=== PATIENT | male | born 1980 | race Caucasian/White ===

== ENCOUNTER 2018-03-10 15:49 | Outpatient (RCR) | payer OTHER, MEDICAID, SELFPAY ==
--- NOTE | 2018-03-10 16:16 | PT.OTN ---
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 All documentation prior to March 08 can be found under [facility] saved data. From March 08 forward all medical record documentation will be in [facility] [facility] 6.1.
--- NOTE | 2018-03-10 18:20 | PT.OTN ---
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) Other abnormalities of gait and mobility (03/10/18) Physical Therapy Treatment Note PT-OP-A Visit Information Start: 03/10/18 17:58 Freq: Status: Active Protocol: Activity Type Activity Date Activity User E-Sign Co-Sign Detail Recorded Client Recorded Date Recorded By Document 03/10/18 16:02 [place] [id number] 03/10/18 18:00 [facility] 03/10/18 16:02 Out-Patient Physical Therapy Visit Information [Visit Information] -Visit Type Treatment Note -Visit Start Time 16:02 -Visit Stop Time 16:50 -Total Visit Minutes 48 -Visit Number 8 -Number of PHOTOGRAPHER STILL Visits 0 [Evaluation Information] -Evaluation Date 12/23/17 PT-OP-C Subjective Start: 03/10/18 17:58 Freq: Status: Active Protocol: Activity Type Activity Date Activity User E-Sign Co-Sign Detail Recorded Client Recorded Date Recorded By Document 03/10/18 18:00 [place] [id number] 03/10/18 18:13 [facility] 03/10/18 18:00 OP-PT Subjective [Patient Comments] -Patient Comments Pt has been able to tolerate 6-7 hrs in his orthotics ( almost his entire work day ). He notes that his L knee pain continues to cause more pain in standing, which leads to more foot pain. PT-OP-J Posture/Palpation/Skin Start: 03/10/18 17:58 Freq: Status: Active Protocol: Activity Type Activity Date Activity User E-Sign Co-Sign Detail Recorded Client Recorded Date Recorded By Document 03/10/18 18:00 [place] [id number] 03/10/18 18:13 [facility] 03/10/18 18:00 Palpation Assessment [Location] One -Palpation Location plantar fascia (bilateral) -Palpation Findings Soft Tissue Tightness PT-OP-Q Treatments Start: 03/10/18 17:58 Freq: Status: Active Protocol: Activity Type Activity Date Activity User E-Sign Co-Sign Detail Recorded Client Recorded Date Recorded By Document 03/10/18 18:00 [facility] [email or web address] 03/10/18 18:13 [facility] 03/10/18 18:00 Gym Equipment [Shuttle Recovery] Bilateral Heel Raises -Resistance 75 -Shuttle Recovery Platform Stable -Reps/Time 1x20 Bilateral Squats -Resistance 125 -Shuttle Recovery Platform Stable -Reps/Time 1x25 Therapeutic Exercises [Standing Exercises] 1 -Standing Exercise Name Stair stretches - HS, gastroc, soleus, plantar fascia -Side bilateral -Reps/Minutes 4 min. Manual Therapy Treatment [Soft Tissue Mobilization] 1 -Body Location plantar fascia (bilateral) -Mobilization Type Rolling -Intensity/Depth Moderate -Body Position Supine -Comments 20 min. [Taping] 1 -Body Location L knee -Treatment Focus decrease swelling/pain L knee to improve foot alignment -Type of Tape Kinesio Tape -Comments 2 Y strips ant. knee, 2 fan strips ant. knee, I strip joint line and medial knee PT-OP-R Modalities Start: 03/10/18 17:58 Freq: Status: Active Protocol: Activity Type Activity Date Activity User E-Sign Co-Sign Detail Recorded Client Recorded Date Recorded By Document 03/10/18 18:13 [facility] [email or web address] 03/10/18 18:14 [facility] 03/10/18 18:13 Hot Pack/Cold Pack [Treatment] Cold Pack -Location L knee -Patient Position Supine -Treatment Duration (minutes) 10 -Patient Tolerance Good -Comments bolster PT-OP-T Assessment and Plan Start: 03/10/18 17:58 Freq: Status: Active Protocol: Activity Type Activity Date Activity User E-Sign Co-Sign Detail Recorded Client Recorded Date Recorded By Document 03/10/18 18:00 [facility] [email or web address] 03/10/18 18:13 [facility] 03/10/18 18:00 Physical Therapy Assessment [Assessment Summary] -Assessment Pt with improved standing posture with kinesiotape to L knee, likely due to pain in the L knee causing increased pronation of the L foot. Pt' s standing tolerance with his feet appear to be improving, slowly however due to multiple co-morbidities . Physical Therapy Plan [Next Visit Focus/Plan] -Next Visit Plan cont. STR to plantar fascia, stretching, lower chain strengthening.
--- NOTE | 2018-06-29 11:20 | PT.OPDS ---
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) Other abnormalities of gait and mobility (03/10/18) Provider Visit Care Team Role Provider Type Viridiana Plasencia DO Primary Care Provider Physician Specialty: Family Practice Address: [address] [place] [address], [id number] Email: [email or web address] Sigala DPM Attending Provider Non-Staff Specialty: Podiatry Address: [address] [place] [address], [phone] Email: Visit Number Visit Number 8 Discharge Summary PT-OP-C Subjective Start: 03/10/18 17:58 Freq: Status: Active Protocol: Document 03/10/18 18:00 [facility] (Rec: 03/10/18 18:13 [facility] [email or web address]) OP-PT Subjective Patient Comments Patient Comments Pt has been able to tolerate 6 -7 hrs in his orthotics ( almost his entire work day). He notes that his L knee pain continues to cause more pain in standing, which leads to more foot pain. PT-OP-J Posture/Palpation/Skin Start: 03/10/18 17:58 Freq: Status: Active Protocol: Document 03/10/18 18:00 [facility] (Rec: 03/10/18 18:13 [facility] [email or web address]) Palpation Assessment Location One Palpation Location plantar fascia (bilateral) Palpation Findings Soft Tissue Tightness PT-OP-T Assessment and Plan Start: 03/10/18 17:58 Freq: Status: Active Protocol: Document 06/29/18 11:16 [facility] (Rec: 06/29/18 11:20 [facility] [email or web address]) Physical Therapy Assessment Assessment Summary Assessment The pt attended 8 total physical therapy sessions, with most recent re-assessment on 02/25/2018. Pt with some improvements with ROM and strength, and has been wearing custom orthotics in his shoes . Pt did not attend further PT sessions beyond his 8th visit , therefore, no objective measures could be taken. Please refer to re-assessment from 02/25/2018 for most recent measurements. Physical Therapy Plan Discharge Physical Therapy Discharge Reasons No Longer Attending PT Discharge Comments pt did not complete his most recent plan of care and does not have any further appointments scheduled.
== END 2018-07-27 13:03 ==
LOC: PHYS 15:49
PROVIDERS: PCP Family Medicine; Visit Provider Podiatrist Foot & Ankle Surgery
DX: M72.2 Plantar fascial fibromatosis (principal); M62.81 Muscle weakness (generalized); M25.672 Stiffness of left ankle, not elsewhere classified; R26.89 Other abnormalities of gait and mobility
CPT/HCPCS: 97110; 97140

== ENCOUNTER → 2018-06-13 14:19 | Outpatient (CLI) | payer OTHER, MEDICAID, SELFPAY ==
[2018-06-13 15:01] LABS: Hemoglobin A1C% w Est Avg Glu 7.1 % (4.0-6.0)
[2018-06-13 15:27] LABS: Alanine Aminotransferase 70 IU/L (21-72); Albumin 4.9 g/dL (3.5-5.0); Albumin Globulin Ratio 1.3 (1.0-2.8); Alkaline Phosphatase 83 U/L (38-126); Aspartate Aminotransferase 57 IU/L (17-59); BUN Creatinine Ratio 13.8 (6-22); Bilirubin Total 0.6 mg/dL (0.2-1.3); Blood Urea Nitrogen 11 mg/dL (9-20); Calcium 10.4 mg/dL (8.4-10.2); Carbon Dioxide 28 mmol/L (22-32); Chloride 99 mmol/L (98-107); Cholesterol 238 mg/dL (140-199); Estimated Glomerular Filt Rate > 60.0 mL/min (>60); Globulin 3.8 g/dL (1.7-4.1); Glucose 113 mg/dL (70-100); HDL Cholesterol 34 mg/dL (40-60); HEMOLYSIS 16 (0-50); LDL Cholesterol Calculated 126 mg/dL (<100); Potassium 3.6 mmol/L (3.4-5.1); Sodium 142 mmol/L (137-145); Total Protein 8.7 g/dL (6.3-8.2); Triglycerides 391 mg/dL (35-150)
[2018-06-13 15:52] LABS: Thyroid Stimulating Hormone 1.99 uIU/mL (0.47-4.68)
== END ==
PROVIDERS: PCP Family Medicine; Visit Provider Family Medicine
DX: E11.9 Type 2 diabetes mellitus without complications (principal); E78.5 Hyperlipidemia, unspecified; I10 Essential (primary) hypertension
CPT/HCPCS: 36415; 80053; 80061; 83036; 84443

== ENCOUNTER → 2018-11-15 12:37 | Outpatient (CLI) | payer OTHER, MEDICAID, SELFPAY | PROVIDERS: PCP Family Medicine; Visit Provider Physician Assistant | DX: J02.9 Acute pharyngitis, unspecified (principal) | CPT/HCPCS: 87070; 87077; 87147 ==

== ENCOUNTER → 2018-12-15 09:23 | Outpatient (CLI) | payer OTHER, MEDICAID, SELFPAY ==
[2018-12-15 09:52] LABS: Add Manual Diff / Slide Review NO; Basophils Absolute Auto 100 /uL (0-100); Basophils Percent Auto 0.9 % (0-2); Eosinophils Absolute Auto 200 /uL (0-450); Eosinophils Percent Auto 2.2 % (2-4); Hematocrit 44.2 % (41-53); Hemoglobin 15.1 g/dL (13.5-17.5); Lymphocytes Absolute Auto 2800 /uL (1100-4500); Lymphocytes Percent Auto 25.5 % (25-40); Mean Corpuscular HGB Conc 34.2 % (30-36); Mean Corpuscular Hemoglobin 28.2 PG (26-34); Mean Corpuscular Volume 82.5 fL (80-100); Monocytes Absolute Auto 600 /uL (0-900); Monocytes Percent Auto 5.6 % (3-14); Neutrophils Absolute Auto 7100 /uL (1500-7000); Neutrophils Percent Auto 65.8 % (50-75); Platelet Count 238 X10^3/uL (150-400); Red Blood Cell Count 5.35 X10^6/uL (4.5-5.9); Red Cell Distribution Width 14.7 % (11.6-14.8); White Blood Cell Count 10.8 X10^3/uL (4.5-11.0)
[2018-12-15 10:05] LABS: Hemoglobin A1C% w Est Avg Glu 10.2 % (4.0-6.0)
[2018-12-15 10:21] LABS: Alanine Aminotransferase 85 IU/L (21-72); Albumin 4.7 g/dL (3.5-5.0); Albumin Globulin Ratio 1.3 (1.0-2.8); Alkaline Phosphatase 134 U/L (38-126); Aspartate Aminotransferase 62 IU/L (17-59); BUN Creatinine Ratio 21.4 (6-22); Bilirubin Total 0.6 mg/dL (0.2-1.3); Blood Urea Nitrogen 15 mg/dL (9-20); Calcium 9.3 mg/dL (8.4-10.2); Carbon Dioxide 25 mmol/L (22-32); Chloride 99 mmol/L (98-107); Cholesterol 196 mg/dL (140-199); Estimated Glomerular Filt Rate > 60.0 mL/min (>60); Globulin 3.6 g/dL (1.7-4.1); Glucose 282 mg/dL (70-100); HDL Cholesterol 34 mg/dL (40-60); HEMOLYSIS 30 (0-50); LDL Cholesterol Calculated 104 mg/dL (<100); Sodium 138 mmol/L (137-145); Total Protein 8.3 g/dL (6.3-8.2); Triglycerides 290 mg/dL (35-150)
[2018-12-15 11:46] LABS: Thyroid Stimulating Hormone 3.91 uIU/mL (0.47-4.68)
== END ==
PROVIDERS: PCP Family Medicine; Visit Provider Family Medicine
DX: E11.9 Type 2 diabetes mellitus without complications (principal); E78.5 Hyperlipidemia, unspecified; I10 Essential (primary) hypertension
CPT/HCPCS: 36415; 80053; 80061; 83036; 84443; 85025

== ENCOUNTER → 2018-12-23 11:27 | Outpatient (CLI) | payer OTHER, MEDICAID, SELFPAY ==
[2018-12-23 11:57] LABS: Influenza A and B by PCR Rapid Negative (Negative)
== END ==
PROVIDERS: PCP Family Medicine; Visit Provider Physician Assistant
DX: R68.89 Other general symptoms and signs (principal)
CPT/HCPCS: 87070; 87400

== ENCOUNTER → 2019-08-10 08:42 | Outpatient (CLI) | payer OTHER, MEDICAID, SELFPAY ==
[2019-08-10 09:32] LABS: Add Manual Diff / Slide Review NO; Basophils Absolute Auto 100 /uL (0-100); Basophils Percent Auto 0.8 % (0-2); Eosinophils Absolute Auto 400 /uL (0-450); Eosinophils Percent Auto 3.5 % (2-4); Hematocrit 47.4 % (41-53); Hemoglobin 16.3 g/dL (13.5-17.5); Lymphocytes Absolute Auto 3700 /uL (1100-4500); Lymphocytes Percent Auto 36.9 % (25-40); Mean Corpuscular HGB Conc 34.5 % (30-36); Mean Corpuscular Hemoglobin 27.7 PG (26-34); Mean Corpuscular Volume 80.3 fL (80-100); Monocytes Absolute Auto 800 /uL (0-900); Neutrophils Absolute Auto 5100 /uL (1500-7000); Neutrophils Percent Auto 50.8 % (50-75); Platelet Count 261 X10^3/uL (150-400); Red Cell Distribution Width 15.8 % (11.6-14.8); White Blood Cell Count 10.1 X10^3/uL (4.5-11.0)
[2019-08-10 09:52] LABS: Alanine Aminotransferase 72 IU/L (21-72); Albumin 4.6 g/dL (3.5-5.0); Albumin Globulin Ratio 1.2 (1.0-2.8); Alkaline Phosphatase 126 U/L (38-126); Aspartate Aminotransferase 65 IU/L (17-59); BUN Creatinine Ratio 26.7 (6-22); Bilirubin Total 0.7 mg/dL (0.2-1.3); Blood Urea Nitrogen 16 mg/dL (9-20); Calcium 9.5 mg/dL (8.4-10.2); Carbon Dioxide 27 mmol/L (22-32); Chloride 97 mmol/L (98-107); Cholesterol 289 mg/dL (140-199); Estimated Glomerular Filt Rate > 60.0 mL/min (>60); Globulin 3.7 g/dL (1.7-4.1); Glucose 297 mg/dL (70-100); HDL Cholesterol 32 mg/dL (40-60); Sodium 135 mmol/L (137-145); Total Protein 8.3 g/dL (6.3-8.2)
[2019-08-10 09:58] LABS: HEMOLYSIS 20 (0-50)
[2019-08-10 10:02] LABS: Triglycerides 605 mg/dL (35-150)
[2019-08-10 10:23] LABS: Thyroid Stimulating Hormone 4.15 uIU/mL (0.47-4.68)
== END ==
PROVIDERS: PCP Family Medicine; Visit Provider Family Medicine
DX: E11.9 Type 2 diabetes mellitus without complications (principal); E78.5 Hyperlipidemia, unspecified; I10 Essential (primary) hypertension
CPT/HCPCS: 36415; 80053; 80061; 83036; 84443; 85025

== ENCOUNTER 2019-10-01 13:22 | Emergency (ER) | payer OTHER, MEDICAID, SELFPAY ==
[2019-10-01 13:35] VITALS: BP 136/74; PULSE 102; RESP 20; TEMP 37; O2SAT 97; BMI 36.1
--- NOTE | 2019-10-01 13:38 | DI.RAD.S_ITS ---
PROCEDURE: XR ELBOW LT MIN 3V INDICATIONS: left elbow pain, unable to move without extreme pain TECHNIQUE: 3 views of the elbow were acquired. COMPARISON: [facility], , ELBOW 3+ VIEWS RIGHT, 03/23/2012, 17:39. FINDINGS: Bones: No fractures or dislocations. No suspicious bony lesions. There is a fragmented posterior olecranon enthesophyte seen. Soft tissues: No significant elbow joint effusion. No suspicious soft tissue calcifications. IMPRESSION: No significant plain film abnormality is seen. If there is strong clinical suspicion for internal derangement of this joint, please consider a dedicated MRI for further evaluation (assuming that there is no contraindication to MRI). Dictated by: Lawrence Nixon M.D. on 10/01/2019 at 13:02 Approved by: Lawrence Nixon M.D. on 10/01/2019 at 13:03
[2019-10-01] MEDS: KETOROLAC 60 MG/2 ML VIAL IM (14:12)
--- NOTE | 2019-10-01 15:43 | ED_ITS ---
HPI - Extremity Problem <Terra Garza, BUSINESS ANALYSIS SPECIALIST-BC - Last Filed: 10/01/19 15:46> General Chief complaint: Extremity Problem,Nontraumatic Stated complaint: left elbow pain Time Seen by Provider: 10/01/19 13:39 Source: patient Mode of arrival: Ambulatory Limitations: no limitations History of Present Illness HPI Narrative: The patient is a 39-year-old male current smoker with history of type 2 diabetes who presents with a chief complaint of left elbow pain. He states has been going on for several months, got worse over the past few days. He states this happened 7 years ago, but resolved. He has taken 400 mg of ibuprofen this morning, has not taken anything else for pain. He has iced it twice a day. 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 Related Data Home Medications Medication Instructions Recorded Confirmed liraglutide 0.6 mg/0.1 mL (18 mg/3 1.8 mg SUBCUT DAILY ml 09/02/18 07/17/19 mL) subcutaneous pen injector dapagliflozin 5 mg tablet 5 mg PO DAILY 06/12/19 07/17/19 insulin glargine 100 unit/mL (3 See Rx Instructions .ROUTE 06/12/19 07/17/19 mL) subcutaneous pen .COMPLEX ml Previous Rx's Medication Instructions Recorded phenylephrine HCl [Hemorrhoidal 1 supp DE QIDP PRN #14 supp 11/11/16 Suppository] Lancets ea BID #100 01/25/17 Glucose: Test Strips str BID #100 08/16/17 ketoconazole [Nizoral] 0 TOPICAL Q7DAYS #120 ml 12/03/17 lidocaine HCl 2 % mucosal jelly 1 applictn TOPICAL Q6HP PRN #30 ml 03/25/18 naratriptan 2.5 mg tablet 2.5 mg PO .COMPLEX #12 tab 04/21/18 zonisamide 100 mg capsule 200 mg PO DAILY #60 cap 04/21/18 glipizide 10 mg tablet, extended 10 mg PO AMCC #30 tab 05/23/18 release 24 hr atorvastatin 80 mg tablet 80 mg PO HS #90 tab 12/02/18 clotrimazole-betamethasone 1 1 applictn TOPICAL BID #15 gram 12/02/18 %-0.05 % topical cream metformin 1,000 mg tablet 1,000 mg PO BIDCC #180 tab 12/02/18 ondansetron 8 mg disintegrating 8 mg PO BID PRN #20 tab 12/23/18 tablet albuterol sulfate 90 mcg/actuation 90 mcg INHALATION QID PRN #1 02/16/19 aerosol inhaler inhalation promethazine 25 mg tablet 25 mg PO Q6HP PRN #30 tab 04/05/19 fluticasone propionate 44 1 inhalation INHALATION BID #10.6 04/18/19 mcg/actuation HFA aerosol inhaler gram lisinopril 20 See Rx Instructions .ROUTE 07/11/19 mg-hydrochlorothiazide 12.5 mg .COMPLEX #30 tablet tablet omeprazole 20 mg tablet,delayed 20 mg PO DAILY #90 tab 07/12/19 release azelastine 137 mcg (0.1 %) nasal 1 spray INTRANASAL BID #1 bot 07/17/19 spray aerosol fluticasone propionate 50 1 spray INTRANASAL BID #1 bot 07/17/19 mcg/actuation nasal spray,suspension pen needle, diabetic 29 gauge x #100 each 07/27/19 1/2 sertraline 100 mg tablet 100 mg PO QDAY #90 tab 08/25/19 oxycodone-acetaminophen 7.5 mg-325 1 tab PO TID #90 tab 09/12/19 mg tablet cyclobenzaprine 10 mg tablet 10 mg PO .once daily PRN #90 tab 09/19/19 ketorolac 10 mg PO TID PRN #14 tab 10/01/19 Allergies Allergy/AdvReac Type Severity Reaction Status Date / Time amoxicillin [AMOXICILLIN] Allergy Unknown HIVES Verified 10/01/19 13:37 Review of Systems <CHAITANYA Parmar- - Last Filed: 10/01/19 15:46> Review of Systems Narrative: GENERAL: Denies chills, fatigue, malaise, fever, sweats. HEENT: Denies sinus pain, ear pain, sore throat, difficulty swallowing, dizziness. RESPIRATORY: Denies dyspnea, cough, wheezing, hemoptysis, sputum. CARDIOVASCULAR: Denies chest pain, palpitations, orthopnea, edema, GASTROINTESTINAL: Denies nausea, vomiting, abdominal pain, diarrhea, constipation, melena. : Denies dysuria, frequency, incontinence, hematuria, urinary retention. MUSCULOSKELETAL: See HPI SKIN: Denies rash, skin lesions, or other NEUROLOGIC: Denies weakness, headache, numbness, change in speech, confusion, seizures, incoordination. PSYCHIATRIC: No concerning psychosocial issues. 12 point review of systems is negative except for those stated above Patient History <ROMANA Parmar - Last Filed: 10/01/19 15:46> Medical History Alopecia (Resolved Unknown) Anxiety (Chronic Unknown) Arthritis (Chronic Unknown) Diabetes (Chronic 2015) Fractures (Resolved 1997) GERD (gastroesophageal reflux disease) (Chronic Unknown) Hemorrhoids (Resolved Unknown) Hyperlipemia (Chronic Unknown) Hypertension (Chronic Unknown) Migraines (Chronic Unknown) Obstructive sleep apnea (Chronic ~03/2015) Surgical History History of fundoplication Hx of arthroscopy of left knee (Resolved 02/2016) Hx of nasal septoplasty (Resolved 10/2015) Hx of nasal sinusotomy (Resolved 10/2015) Family History Brother Age: 43 Kidney transplanted Father Asthma Pleurisy Mother Hypertension GERD (gastroesophageal reflux disease) DJD (degenerative joint disease) Sister Seizure Social History Smoking Status: Current every day smoker Tobacco: How many years used: 24 alcohol intake: current (occasional) Substance Use Type: does not use Exam <ROMANA Parmar - Last Filed: 10/01/19 15:46> Narrative Exam Narrative: GENERAL: Morbidly obese male in no acute distress HEAD: Atraumatic. Normocephalic. No temporal or scalp tenderness. EYES: Pupils equal round and reactive. Extraocular motions intact. No scleral icterus. No injection or drainage. ENT: Nose without bleeding, purulent drainage or septal hematoma. Throat without erythema, tonsillar hypertrophy or exudate. Uvula midline. Airway patent. NECK: Trachea midline. No JVD or lymphadenopathy. Supple, nontender, no meningeal signs. CARDIOVASCULAR: Regular rate and rhythm RESPIRATORY: No cough. No increased respiratory effort. No accessory muscle use. EXTREMITIES: Generalized pain to palpation left elbow. Able to flex and extend left elbow fully. Positive radial pulse left hand. Able to pronate and supinate left hand. Able to make a fist good strength bilaterally upper extremities. BACK: Nontender without deformity or crepitance. No flank tenderness. NEURO: AOx3. SKIN: No rash or erythema on visible skin. No overlying erythema ecchymosis laceration or abrasion noted left elbow. Initial Vital Signs Initial Vital Signs: Vital Signs Temperature 98.6 F 10/01/19 13:35 Pulse Rate 102 H 10/01/19 13:35 Respiratory Rate 20 10/01/19 13:35 Blood Pressure 136/74 10/01/19 13:35 Pulse Oximetry 97 10/01/19 13:35 <Queta Cruz MD - Last Filed: 10/02/19 07:00> Initial Vital Signs Initial Vital Signs: Vital Signs Temperature 98.6 F 10/01/19 13:35 Pulse Rate 102 H 10/01/19 13:35 Respiratory Rate 20 10/01/19 13:35 Blood Pressure 136/74 10/01/19 13:35 Pulse Oximetry 97 10/01/19 13:35 Course <ROMANA Parmar - Last Filed: 10/01/19 15:46> Orders Ordered: Discontinued Medications Ketorolac Tromethamine (Toradol) 60 mg IM NOW ONE Stop: 10/01/19 13:58 Last Admin: 10/01/19 14:12 Dose: 60 mg Documented by: KIEL Vital Signs Vital signs: Vital Signs - 8 hr 10/01/19 13:35 Temperature 98.6 F Pulse Rate 102 H Respiratory Rate 20 Blood Pressure 136/74 Pulse Oximetry 97 <Queta Cruz MD - Last Filed: 10/02/19 07:00> Orders Ordered: Discontinued Medications Ketorolac Tromethamine (Toradol) 60 mg IM NOW ONE Stop: 10/01/19 13:58 Last Admin: 10/01/19 14:12 Dose: 60 mg Documented by: KIEL Vital Signs Vital signs: Vital Signs - 8 hr 10/01/19 13:35 Temperature 98.6 F Pulse Rate 102 H Respiratory Rate 20 Blood Pressure 136/74 Pulse Oximetry 97 MDM - Extremity (Nontraumatic) <ROMANA Parmar - Last Filed: 10/01/19 15:46> Imaging Data Elbow x-ray: Radiologist's impression: [address] [address] XRay Report Signed Patient: Josh Hidalgo TMR#: [id number] : 1980Acct:[id number] Age/Sex: 39 / MDate of Service: 10/01/19 Loc: ED Accession Number: [id number] Procedure: XR elbow LT min 3V Ordering Provider: Queta Cruz MD PROCEDURE: XR ELBOW LT MIN 3V INDICATIONS: left elbow pain, unable to move without extreme pain TECHNIQUE: 3 views of the elbow were acquired. COMPARISON: [facility], , ELBOW 3+ VIEWS RIGHT, 03/23/2012, 17:39. FINDINGS: Bones: No fractures or dislocations. No suspicious bony lesions. There is a fragmented posterior olecranon enthesophyte seen. Soft tissues: No significant elbow joint effusion. No suspicious soft tissue calcifications. IMPRESSION: No significant plain film abnormality is seen. If there is strong clinical suspicion for internal derangement of this joint, please consider a dedicated MRI for further evaluation (assuming that there is no contraindication to MRI). Dictated by: Lawrence Nixon M.D. on 10/01/2019 at 13:02 Approved by: Lawrence Nixon M.D. on 10/01/2019 at 13:03 [facility] Narrative Medical decision making narrative: Patient is a 39-year-old male who presents with a chief complaint of elbow pain. He has a negative x-ray. He denies any history of trauma. He has no signs of infection, no erythema etc. He responded to Toradol in the emergency department, so I gave him prescription and discussed to not take it with any other NSAIDs. Encouraged rest ice compression elevation. Offered work note, patient declined. Encourage PCP follow-up in the next few days and coming back to the emergency department for any acute concerns. Patient has no questions or concerns upon discharge and states understanding of return precautions as well as follow-up care. Discharge Plan Departure Patient Disposition: Home Clinical Impression: Elbow pain, left Discharge Date/Time: 10/01/19 14:57 Instructions: How To Perform RICE (Rest, Ice, Compress, Elevate), DI for Elbow Pain Activity Restrictions/Additional Instructions: I have given you a prescription of Toradol. This is an NSAID. Do not combine it with other NSAIDs such as Aleve or ibuprofen. I suggest taking it with some food, as it can irritate your stomach. As I discussed, your x-ray shows no acute fracture. This does not rule out a soft tissue injury such as a ligament or tendon injury. It is important that you follow up with primary care provider, especially if worsening or no improvement. There can be fractures that did not show up on initial x-ray. Please use rest ice compression elevation Please follow up with primary care provider in the next few days. Please come back to the emergency department for any acute concerns such as chest pain, shortness of breath, concern of heart attack or stroke Prescriptions: New ketorolac 10 mg tablet 10 mg PO TID PRN (Reason: pain) Qty: 14 RF: 0 No Action ondansetron 8 mg tablet,disintegrating 8 mg PO BID PRN (Reason: nausea and vomiting) Qty: 20 RF: 0 liraglutide [Victoza 2-Aniceto] 0.6 mg/0.1 mL (18 mg/3 mL) pen injector 1.8 mg SUBCUT DAILY RF: 0 clotrimazole-betamethasone [Lotrisone] 1-0.05 % cream 1 applictn Topical BID Qty: 15 RF: 1 atorvastatin [Lipitor] 80 mg tablet 80 mg PO HS Qty: 90 RF: 1 metformin 1,000 mg tablet 1,000 mg PO BIDCC Qty: 180 RF: 1 phenylephrine HCl [Hemorrhoidal Suppository] 0.25 % suppository 1 supp DE QIDP PRNQty: 14 RF: 6 Lancets BID Qty: 100 RF: 5 Glucose: Test Strips BID Qty: 100 RF: 6 ketoconazole [Nizoral] 2 % shampoo 0 Topical Q7DAYS Qty: 120 RF: 1 lidocaine HCl 2 % jelly 1 applictn Topical Q6HP PRN (Reason: pain) Qty: 30 RF: 0 glipizide [Glucotrol XL] 10 mg tablet extended release 24hr 10 mg PO AMCC Qty: 30 RF: 3 albuterol sulfate [Ventolin HFA] 90 mcg/actuation HFA aerosol inhaler 90 mcg Inhalation QID PRN (Reason: shortness of breath or wheezing) Qty: 1 RF: 2 promethazine 25 mg tablet 25 mg PO Q6HP PRN (Reason: nausea and vomiting) Qty: 30 RF: 2 Flovent HFA 44 mcg/actuation HFA aerosol inhaler 1 inhalation INHALATION BID Qty: 10.6 RF: 1 lisinopril-hydrochlorothiazide 20-12.5 mg tablet See Rx Instructions .ROUTE .COMPLEX Qty: 30 RF: 0 omeprazole 20 mg tablet,delayed release (DR/EC) 20 mg PO DAILY Qty: 90 RF: 1 (DME) pen needle, diabetic [Ultra-Thin II Ins Pen [place]] 29 gauge x 1/2 needle See Dose Instructions .ROUTE .MEDSUPPLY Qty: 100 RF: 3 sertraline 100 mg tablet 100 mg PO QDAY Qty: 90 RF: 1 oxycodone-acetaminophen [Percocet] 7.5-325 mg tablet 1 tab PO TID Qty: 90 RF: 0 cyclobenzaprine 10 mg tablet 10 mg PO .once daily PRN (Reason: muscle spasm) Qty: 90 RF: 0 Lantus Solostar U-100 Insulin 100 unit/mL (3 mL) insulin pen See Rx Instructions .ROUTE .COMPLEX RF: 0 Farxiga 5 mg tablet 5 mg PO DAILY RF: 0 azelastine 137 mcg (0.1 %) aerosol,spray 1 spray Intranasal BID Qty: 1 RF: 12 fluticasone propionate [Flonase Allergy Relief] 50 mcg/actuation spray,suspen jennifer 1 spray Intranasal BID Qty: 1 RF: 11 zonisamide 100 mg capsule 200 mg PO DAILY Qty: 60 RF: 11 naratriptan 2.5 mg tablet 2.5 mg PO .COMPLEX Qty: 12 RF: 11 Referrals: Viridiana Plasencia DO [Primary Care Provider] -
== END 2019-10-01 14:57 | disposition home or self-care (01) ==
PROVIDERS: Emergency Provider Nurse Practitioner Family; PCP Family Medicine
DX: M25.522 Pain in left elbow (principal)
CPT/HCPCS: 73080; 96372; 99282; 99283; J1885

== ENCOUNTER 2019-12-27 09:00 | Outpatient (RCR) | payer OTHER, MEDICAID, SELFPAY ==
--- NOTE | 2019-12-06 15:04 | PT.OIE ---
Current Diagnoses Stiffness of unspecified joint, not elsewhere classified (12/06/19) Lumbago with sciatica, unspecified side (12/06/19) Muscle weakness (generalized) (12/06/19) Strain of muscle, fascia and tendon of lower back, subsequent encounter (12/06/19) Past Medical History (Last Reviewed 10/16/19 @ 11:47 by Viridiana Plasencia DO) Alopecia (Resolved Unknown) Anxiety (Chronic Unknown) Arthritis (Chronic Unknown) Diabetes (Chronic 2015) Fractures (Resolved 1997) GERD (gastroesophageal reflux disease) (Chronic Unknown) Hemorrhoids (Resolved Unknown) Hyperlipemia (Chronic Unknown) Hypertension (Chronic Unknown) Migraines (Chronic Unknown) Obstructive sleep apnea (Chronic ~03/2015) Past Surgical History (Last Reviewed 10/16/19 @ 11:47 by Viridiana Plasencia DO) History of fundoplication Hx of arthroscopy of left knee (Resolved 02/2016) Hx of nasal septoplasty (Resolved 10/2015) Hx of nasal sinusotomy (Resolved 10/2015) Visit Care Team Role Provider Type Viridiana Plasencia DO Attending Provider Physician Primary Care Provider Specialty: [facility] Address: [address] [place] [address], [address], [facility] Email: [email or web address] Physical Therapy Initial Evaluation PT-OP-A Visit Information Start: 12/06/19 12:30 Freq: Status: Active Protocol: Document 12/06/19 10:30 DCW (Rec: 12/06/19 12:50 DCW [id number]) Out-Patient Physical Therapy Visit Information Visit Information Visit Type Initial Evaluation Visit Start Time 10:30 Visit Stop Time 11:10 Total Visit Minutes 40 Visit Number 1 Number of FORENSICS ANALYST Visits 0 Evaluation Information Evaluation Date 12/06/19 PT-OP-B Current Condition Start: 12/06/19 12:30 Freq: Status: Active Protocol: Document 12/06/19 10:30 DCW (Rec: 12/06/19 12:50 DCW [id number]) Current Condition History of Current Condition Onset Date ~4 years Current Complaints Low back pain, stiffness, decreased functional mobility History of Current Condition Pt is a 39 year old male with an approximately 4 year history of low back pain. Pt has a long standing history of multiple left knee problems, resulting in two surgeries over the last four years. Nearly four years ago, he fell down stairs, which resulted in a meniscus tear and ACL sprain,. Between the fall and change in his gait pattern, pt began to get severe back pain . 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 Pt reports his only relief is pain meds and his TENS unit. Notes his pain averages a 7/10, but is a 5/10 at absolute best, and a 10/10 at worst. Prior Treatments and Tests PCP recommended lumbar x-ray, however has not yet received PT-OP-C Subjective Start: 12/06/19 12:30 Freq: Status: Active Protocol: Document 12/06/19 10:30 DCW (Rec: 12/06/19 12:50 DCW [id number]) OP-PT Subjective Patient Comments Patient Comments I just want to relieve some of this pain. Patient Questionnaires Oswestry Low Back Index Oswestry Score 27/50 = 54% Oswestry Impairment 40 to 59% Impaired (Score 40- 59) OP-PT Pain Assessment Pain Assessment Grid Paper Pain Assessment Grid Completed Yes Location Bilateral Lower Back Intensity 7 Scale Used Numeric (1 - 10) Description Radiating,Shooting,Spasm Frequency Constant Pain Aggravating Factors Standing,Bending,Lifting Home Pain Medication Use Pain Medications Used Yes Pain Behaviors Pain Behaviors Facial Grimacing,Wincing PT-OP-F Manual Assessment Start: 12/06/19 12:30 Freq: Status: Active Protocol: Document 12/06/19 10:30 DCW (Rec: 12/06/19 14:52 DCW [id number]) Manual Assessments Soft Tissue Assessment Soft Tissue Mobility Assessment Moderate tone with tenderness to palpation 3/4: Wincing and withdraw along bilateral piriformis, QL, and thoracic/ lumbar paraspinals Joint Mobility Assessment Joint Mobility Assessment Hypomobility and Tenderness to palpation 3/4: Wincing and withdraw along T-6-L5, as well as tenderness along bilateral SI PT-OP-K Range of Motion Start: 12/06/19 12:30 Freq: Status: Active Protocol: Document 12/06/19 10:30 DCW (Rec: 12/06/19 14:52 DCW [id number]) Lumbar Spine Range of Motion Lumbar Spine Active Degrees Testing Position Sitting Flexion 12 Extension 4 Rotation Left 6 Rotation Right 6 ROM Limitations Pain Comments Very minimal mobility before moderate-severe pain reaction PT-OP-L Special Tests Start: 12/06/19 12:30 Freq: Status: Active Protocol: Document 12/06/19 10:30 DCW (Rec: 12/06/19 14:52 DCW [id number]) Special Tests Lumbar Spine Special Tests Vertical Spine Loading Test Results Positive Standing Flexion Test Results Positive Straight Leg Raise Test Results Positive Bilaterally Slump Test Results Negative Passive Neck Flexion Test Results Positive Manual Traction Test Results Positive for pain Compression Test Results Positive Hip Special Tests Dayan's Test Test Results Positive bilaterally JIGNA Test Results Positive bilaterally PT-OP-M Strength Start: 12/06/19 12:30 Freq: Status: Active Protocol: Document 12/06/19 10:30 DCW (Rec: 12/06/19 14:52 AZW [id number]) Trunk Strength Trunk Manual Muscle Testing Core Stabilization Pt has difficulty nas TrA during pelvic tilt, leading to core and hip instability during movement, TrA MMT 3+/5 Hip Strength Hip Manual Muscle Testing Right Flexion (L2) 4+ Good+ Extension (S1) 4- Good- Abduction 3+ Fair+ Adduction 3 Fair Left Flexion (L2) 4+ Good+ Extension (S1) 4- Good- Abduction 3+ Fair+ Adduction 3 Fair Knee Strength Knee Manual Muscle Testing Right Flexion (S2) 5 Normal Extension (L3) 5 Normal Left Flexion (S2) 3+ Fair+ Extension (L3) 3+ Fair+ Reason Not Measured Pain Ankle/Foot Strength Ankle and Foot Manual Muscle Testing Right Dorsiflexion (L4) 4+ Good+ Plantarflexion (S1) 4+ Good+ Left Dorsiflexion (L4) 4+ Good+ Plantarflexion (S1) 4+ Good+ PT-OP-Q Treatments Start: 12/06/19 12:30 Freq: Status: Active Protocol: Document 12/06/19 10:30 DCW (Rec: 12/06/19 14:52 AZW [id number]) Therapeutic Exercises Sitting Exercises 3 Sitting Exercise Name Seated PPT 2 Sitting Exercise Name Seated lumbar lateral flexion Side bilateral Comments pain-free ROM 1 Sitting Exercise Name Seated lumbar flexion Comments pain-free ROM PT-OP-T Assessment and Plan Start: 12/06/19 12:30 Freq: Status: Active Protocol: Document 12/06/19 10:30 DCW (Rec: 12/06/19 15:02 DCW [id number]) Physical Therapy Assessment Rehab Potential Rehabilitation Potential Fair Evaluation Complexity Number of Personal Factors/Comorbidities 3 or More Number of Body Systems Impaired 4 or More Clinical Presentation at Evaluation Unstable Impairments Impairments Activity Tolerance,Functional Activities,Functional Mobility ,Pain,ROM,Soft Tissue Mobility ,Strength Goals Three Impairment Pt demonstrates significant hip weakness Senior Care Goal (LTG) Pt to improve gross hip MMT to 4/5 to enable him to improve spinal stability, allowing for proper body mechanics while lifting objects at work. 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 Pt is incredibly difficult to diagnoses, or even rule out causes for his pain, because essentially all special testing was positive. All test positions and palpations caused increased pain. Pt does have increased tone throughout his posterior hip, low- and mid back, which if decreased, may allow for more specific testing to determine root cause. Pt does also show billateral hip weakness, core weakness, and vertebral hypomobility. Skilled PT should address these deficiencies. Pt may also benefit from getting in for the lumbar x-ray which his PCP recommended ~2 months ago. PT should focus on STM, flexibility, pain-control modalities, and hip/core strengthening. Physical Therapy Plan Frequency and Duration Frequency of Treatment 2x/Week Duration of Treatment 12 weeks Plan of Care Start Date 12/06/19 Plan of Care End Date 02/28/20 Therapeutic Interventions Therapeutic Interventions Aquatic Therapy,Home Exercise Program,Joint Mobilizations, Manual Therapy,Neuromuscular Re-education,Patient/Caregiver Education,Self-Care/Home Management,Soft Tissue Mobilization,Therapeutic Activities,Therapeutic Exercises Modalities Cold Pack/Ice Massage,Electric Stimulation,Hot Packs, Infrared Therapy,Traction- Mechanical,Ultrasound Next Visit Focus/Plan Next Note Type Treatment Note Next Visit Plan STM, Flexibility, pain-control modalities, hip and core strengthening
--- NOTE | 2019-12-06 15:05 | PT.OPPOC ---
Physical, Occupational & Speech Therapy At [facility] Current Diagnoses Stiffness of unspecified joint, not elsewhere classified (12/06/19) Lumbago with sciatica, unspecified side (12/06/19) Muscle weakness (generalized) (12/06/19) Strain of muscle, fascia and tendon of lower back, subsequent encounter (12/06/19) Visit Care Team Role Provider Type Viridiana Plasencia DO Attending Provider Physician Primary Care Provider Specialty: [facility] Address: [address] [place] [address], [address], [facility] Email: [email or web address] Plan Of Care PT-OP-T Assessment and Plan Start: 12/06/19 12:30 Freq: Status: Active Protocol: Document 12/06/19 10:30 DCW (Rec: 12/06/19 15:02 DCW [id number]) Physical Therapy Assessment Rehab Potential Rehabilitation Potential Fair Evaluation Complexity Number of Personal Factors/Comorbidities 3 or More Number of Body Systems Impaired 4 or More Clinical Presentation at Evaluation Unstable Impairments Impairments Activity Tolerance,Functional Activities,Functional Mobility ,Pain,ROM,Soft Tissue Mobility ,Strength Goals Three Impairment Pt demonstrates significant hip weakness Senior Care Goal (LTG) Pt to improve gross hip MMT to 4/5 to enable him to improve spinal stability, allowing for proper body mechanics while lifting objects at work. 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 Pt is incredibly difficult to diagnoses, or even rule out causes for his pain, because essentially all special testing was positive. All test positions and palpations caused increased pain. Pt does have increased tone throughout his posterior hip, low- and mid back, which if decreased, may allow for more specific testing to determine root cause. Pt does also show billateral hip weakness, core weakness, and vertebral hypomobility. Skilled PT should address these deficiencies. Pt may also benefit from getting in for the lumbar x-ray which his PCP recommended ~2 months ago. PT should focus on STM, flexibility, pain-control modalities, and hip/core strengthening. Physical Therapy Plan Frequency and Duration Frequency of Treatment 2x/Week Duration of Treatment 12 weeks Plan of Care Start Date 12/06/19 Plan of Care End Date 02/28/20 Therapeutic Interventions Therapeutic Interventions Aquatic Therapy,Home Exercise Program,Joint Mobilizations, Manual Therapy,Neuromuscular Re-education,Patient/Caregiver Education,Self-Care/Home Management,Soft Tissue Mobilization,Therapeutic Activities,Therapeutic Exercises Modalities Cold Pack/Ice Massage,Electric Stimulation,Hot Packs, Infrared Therapy,Traction- Mechanical,Ultrasound Next Visit Focus/Plan Next Note Type Treatment Note Next Visit Plan STM, Flexibility, pain-control modalities, hip and core strengthening Plan of Care Dates Plan of Care Start Date 12/06/19 Plan of Care End Date 02/28/20 Electronically Signed by: Paresh Mercado, PT 12/06/19 [id number] Please Sign and Return: I have reviewed this Plan of Care and certify that the skilled therapy services above are required to meet the patient?s needs. Physician Signature Date Printed Name and Credentials Clinical Instructor Signature Printed Name and Credentials
--- NOTE | 2019-12-08 13:50 | PT.OTN ---
Current Diagnoses Stiffness of unspecified joint, not elsewhere classified (12/08/19) Lumbago with sciatica, unspecified side (12/08/19) Muscle weakness (generalized) (12/08/19) Strain of muscle, fascia and tendon of lower back, subsequent encounter (12/08/19) Physical Therapy Treatment Note PT-OP-A Visit Information Start: 12/06/19 12:30 Freq: Status: Active Protocol: Document 12/08/19 12:57 SP (Rec: 12/08/19 13:51 SP [id number]) Out-Patient Physical Therapy Visit Information Visit Information Visit Type Treatment Note Visit Start Time 13:02 Visit Stop Time 13:50 Total Visit Minutes 48 Visit Number 2 Number of BIAS CUTTING MACHINE OPERATOR Visits 1 PT-OP-B Current Condition Start: 12/06/19 12:30 Freq: Status: Active Protocol: Document 12/06/19 10:30 DCW (Rec: 12/06/19 12:50 DCW [id number]) Current Condition History of Current Condition Onset Date ~4 years Current Complaints Low back pain, stiffness, decreased functional mobility History of Current Condition Pt is a 39 year old male with an approximately 4 year history of low back pain. Pt has a long standing history of multiple left knee problems, resulting in two surgeries over the last four years. Nearly four years ago, he fell down stairs, which resulted in a meniscus tear and ACL sprain,. Between the fall and change in his gait pattern, pt began to get severe back pain . 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 Pt reports his only relief is pain meds and his TENS unit. Notes his pain averages a 7/10, but is a 5/10 at absolute best, and a 10/10 at worst. Prior Treatments and Tests PCP recommended lumbar x-ray, however has not yet received PT-OP-C Subjective Start: 12/06/19 12:30 Freq: Status: Active Protocol: Document 12/08/19 12:57 SP (Rec: 12/08/19 13:51 SP [id number]) OP-PT Subjective Patient Comments Patient Comments Pt reported had to use his tens machine after last appt to assist pain control. 7/10 LBP pre PT but the norm, not sure if worse into LLE due to always there. PT-OP-F Manual Assessment Start: 12/06/19 12:30 Freq: Status: Active Protocol: Document 12/06/19 10:30 DCW (Rec: 12/06/19 14:52 DCW [id number]) Manual Assessments Soft Tissue Assessment Soft Tissue Mobility Assessment Moderate tone with tenderness to palpation 3/4: Wincing and withdraw along bilateral piriformis, QL, and thoracic/ lumbar paraspinals Joint Mobility Assessment Joint Mobility Assessment Hypomobility and Tenderness to palpation 3/4: Wincing and withdraw along T-6-L5, as well as tenderness along bilateral SI PT-OP-K Range of Motion Start: 12/06/19 12:30 Freq: Status: Active Protocol: Document 12/06/19 10:30 DCW (Rec: 12/06/19 14:52 DCW [id number]) Lumbar Spine Range of Motion Lumbar Spine Active Degrees Testing Position Sitting Flexion 12 Extension 4 Rotation Left 6 Rotation Right 6 ROM Limitations Pain Comments Very minimal mobility before moderate-severe pain reaction PT-OP-L Special Tests Start: 12/06/19 12:30 Freq: Status: Active Protocol: Document 12/06/19 10:30 DCW (Rec: 12/06/19 14:52 DCW [id number]) Special Tests Lumbar Spine Special Tests Vertical Spine Loading Test Results Positive Standing Flexion Test Results Positive Straight Leg Raise Test Results Positive Bilaterally Slump Test Results Negative Passive Neck Flexion Test Results Positive Manual Traction Test Results Positive for pain Compression Test Results Positive Hip Special Tests Dayan's Test Test Results Positive bilaterally JIGNA Test Results Positive bilaterally PT-OP-M Strength Start: 12/06/19 12:30 Freq: Status: Active Protocol: Document 12/06/19 10:30 DCW (Rec: 12/06/19 14:52 DCW [id number]) Trunk Strength Trunk Manual Muscle Testing Core Stabilization Pt has difficulty nas TrA during pelvic tilt, leading to core and hip instability during movement, TrA MMT 3+/5 Hip Strength Hip Manual Muscle Testing Right Flexion (L2) 4+ Good+ Extension (S1) 4- Good- Abduction 3+ Fair+ Adduction 3 Fair Left Flexion (L2) 4+ Good+ Extension (S1) 4- Good- Abduction 3+ Fair+ Adduction 3 Fair Knee Strength Knee Manual Muscle Testing Right Flexion (S2) 5 Normal Extension (L3) 5 Normal Left Flexion (S2) 3+ Fair+ Extension (L3) 3+ Fair+ Reason Not Measured Pain Ankle/Foot Strength Ankle and Foot Manual Muscle Testing Right Dorsiflexion (L4) 4+ Good+ Plantarflexion (S1) 4+ Good+ Left Dorsiflexion (L4) 4+ Good+ Plantarflexion (S1) 4+ Good+ PT-OP-Q Treatments Start: 12/06/19 12:30 Freq: Status: Active Protocol: Document 12/08/19 12:57 SP (Rec: 12/08/19 13:51 SP [id number]) Therapeutic Exercises Supine Exercises clamshell Supine Exercise Name hooklying Reps/Minutes x10 Comments PPT, tolerant range core march Reps/Minutes 2x5 Comments cued PPT and slow movement pelvic tilt and trans ab Comments performed, cued slow into/ out movement Sitting Exercises Ql stretch Side bilateral Reps/Minutes 10 sec x2 Comments cued tolerant range PF, hip Er stretch Side bilateral Reps/Minutes 30 x2 Comments cued tolerant range 1 Sitting Exercise Name Seated lumbar flexion Comments pain-free ROM PT-OP-R Modalities Start: 12/06/19 12:30 Freq: Status: Active Protocol: Document 12/08/19 12:57 SP (Rec: 12/08/19 13:51 SP [id number]) Electric Stimulation Electric Stimulation IFC Body Location TS, LS Duration (Minutes) 15 Intensity 22 Target/Sweep Target High/Low High Patient Position Prone Combined With Heat/Cold Hot Pack Comments tolerated well PT-OP-T Assessment and Plan Start: 12/06/19 12:30 Freq: Status: Active Protocol: Document 12/08/19 12:57 SP (Rec: 12/08/19 13:51 SP [id number]) Physical Therapy Assessment Goals Three Impairment Pt demonstrates significant hip weakness [facility] Goal (LTG) Pt to improve gross hip MMT to 4/5 to enable him to improve spinal stability, allowing for proper body mechanics while lifting objects at work. 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 Pt reported decrease LBP endof tx 03/17 from 7-8 pre PT. Physical Therapy Plan Frequency and Duration Frequency of Treatment 2x/Week Duration of Treatment 12 weeks Plan of Care Start Date 12/06/19 Plan of Care End Date 02/28/20 Therapeutic Interventions Therapeutic Interventions Aquatic Therapy,Home Exercise Program,Joint Mobilizations, Manual Therapy,Neuromuscular Re-education,Patient/Caregiver Education,Self-Care/Home Management,Soft Tissue Mobilization,Therapeutic Activities,Therapeutic Exercises Modalities Cold Pack/Ice Massage,Electric Stimulation,Hot Packs, Infrared Therapy,Traction- Mechanical,Ultrasound Next Visit Focus/Plan Next Note Type Treatment Note Next Visit Plan Assess added seated and supine HEP last tx tolerance and performance proper form. Continue per PT POC: STM, Flexibility, pain-control modalities, hip and core strengthening
--- NOTE | 2019-12-13 10:48 | PT-OP ANOTE ---
Pt no-showed to his appointment on 12/13/19
--- NOTE | 2019-12-27 09:47 | PT.OTN ---
Current Diagnoses Stiffness of unspecified joint, not elsewhere classified (12/27/19) Lumbago with sciatica, unspecified side (12/27/19) Muscle weakness (generalized) (12/27/19) Strain of muscle, fascia and tendon of lower back, subsequent encounter (12/27/19) Physical Therapy Treatment Note PT-OP-A Visit Information Start: 12/06/19 12:30 Freq: Status: Active Protocol: Document 12/27/19 09:02 SP (Rec: 12/27/19 09:49 SP [id number]) Out-Patient Physical Therapy Visit Information Visit Information Visit Type Treatment Note Visit Start Time 09:04 Visit Stop Time 09:47 Total Visit Minutes 43 Visit Number 3 Number of HUMAN RESOURCES COMMUNICATIONS MANAGER Visits 2 PT-OP-B Current Condition Start: 12/06/19 12:30 Freq: Status: Active Protocol: Document 12/06/19 10:30 DCW (Rec: 12/06/19 12:50 DCW [id number]) Current Condition History of Current Condition Onset Date ~4 years Current Complaints Low back pain, stiffness, decreased functional mobility History of Current Condition Pt is a 39 year old male with an approximately 4 year history of low back pain. Pt has a long standing history of multiple left knee problems, resulting in two surgeries over the last four years. Nearly four years ago, he fell down stairs, which resulted in a meniscus tear and ACL sprain,. Between the fall and change in his gait pattern, pt began to get severe back pain . 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 Pt reports his only relief is pain meds and his TENS unit. Notes his pain averages a 7/10, but is a 5/10 at absolute best, and a 10/10 at worst. Prior Treatments and Tests PCP recommended lumbar x-ray, however has not yet received PT-OP-C Subjective Start: 12/06/19 12:30 Freq: Status: Active Protocol: Document 12/27/19 09:02 SP (Rec: 12/27/19 09:49 SP [id number]) OP-PT Subjective Patient Comments Patient Comments Pt reported same LBP 7/10 pre PT, PT-OP-F Manual Assessment Start: 12/06/19 12:30 Freq: Status: Active Protocol: Document 12/06/19 10:30 DCW (Rec: 12/06/19 14:52 DCW [id number]) Manual Assessments Soft Tissue Assessment Soft Tissue Mobility Assessment Moderate tone with tenderness to palpation 3/4: Wincing and withdraw along bilateral piriformis, QL, and thoracic/ lumbar paraspinals Joint Mobility Assessment Joint Mobility Assessment Hypomobility and Tenderness to palpation 3/4: Wincing and withdraw along T-6-L5, as well as tenderness along bilateral SI PT-OP-K Range of Motion Start: 12/06/19 12:30 Freq: Status: Active Protocol: Document 12/06/19 10:30 DCW (Rec: 12/06/19 14:52 DCW [id number]) Lumbar Spine Range of Motion Lumbar Spine Active Degrees Testing Position Sitting Flexion 12 Extension 4 Rotation Left 6 Rotation Right 6 ROM Limitations Pain Comments Very minimal mobility before moderate-severe pain reaction PT-OP-L Special Tests Start: 12/06/19 12:30 Freq: Status: Active Protocol: Document 12/06/19 10:30 DCW (Rec: 12/06/19 14:52 DCW [id number]) Special Tests Lumbar Spine Special Tests Vertical Spine Loading Test Results Positive Standing Flexion Test Results Positive Straight Leg Raise Test Results Positive Bilaterally Slump Test Results Negative Passive Neck Flexion Test Results Positive Manual Traction Test Results Positive for pain Compression Test Results Positive Hip Special Tests Dayan's Test Test Results Positive bilaterally JIGNA Test Results Positive bilaterally PT-OP-M Strength Start: 12/06/19 12:30 Freq: Status: Active Protocol: Document 12/06/19 10:30 DCW (Rec: 12/06/19 14:52 DCW [id number]) Trunk Strength Trunk Manual Muscle Testing Core Stabilization Pt has difficulty nas TrA during pelvic tilt, leading to core and hip instability during movement, TrA MMT 3+/5 Hip Strength Hip Manual Muscle Testing Right Flexion (L2) 4+ Good+ Extension (S1) 4- Good- Abduction 3+ Fair+ Adduction 3 Fair Left Flexion (L2) 4+ Good+ Extension (S1) 4- Good- Abduction 3+ Fair+ Adduction 3 Fair Knee Strength Knee Manual Muscle Testing Right Flexion (S2) 5 Normal Extension (L3) 5 Normal Left Flexion (S2) 3+ Fair+ Extension (L3) 3+ Fair+ Reason Not Measured Pain Ankle/Foot Strength Ankle and Foot Manual Muscle Testing Right Dorsiflexion (L4) 4+ Good+ Plantarflexion (S1) 4+ Good+ Left Dorsiflexion (L4) 4+ Good+ Plantarflexion (S1) 4+ Good+ PT-OP-Q Treatments Start: 12/06/19 12:30 Freq: Status: Active Protocol: Document 12/27/19 09:02 SP (Rec: 12/27/19 09:49 SP [id number]) Therapeutic Exercises Supine Exercises LTR Side bilateral Reps/Minutes 2 sec hold x10 core bridge Reps/Minutes x10 Comments cued slow pacing with PPT awareness verena range clamshell Supine Exercise Name hooklying, alternate Side bilateral Equipment Used TB #1 Reps/Minutes 2x5 Comments PPT, tolerant range core march Supine Exercise Name alternate Side bilateral Reps/Minutes 2x5 Comments cued PPT and slow movement pelvic tilt and trans ab Supine Exercise Name HEP review Reps/Minutes x5 Comments pre core ex awareness Standing Exercises cat camel Equipment Used table Reps/Minutes x5 pause, x10 Comments cued tolerable range core resisted side step and press out Side bilateral Resistance TB #2 Reps/Minutes side step x3 R and L x3 set R and L, stationary press outs x10 R and L Comments Cued PPT awareness with soft knee bend Manual Therapy Treatment Soft Tissue Mobilization 1 Body Location STMs to BL:ES, paraspinal, QL, glut med Mobilization Type Cross-Friction,Myofascial Release Intensity/Depth Moderate Body Position Prone Comments tolerated well, sensitive to pressure. PT-OP-R Modalities Start: 12/06/19 12:30 Freq: Status: Active Protocol: Document 12/27/19 09:02 SP (Rec: 12/27/19 09:49 SP [id number]) Electric Stimulation Electric Stimulation IFC Body Location TS, LS Duration (Minutes) 10 Intensity 23 Target/Sweep Target High/Low High Patient Position Prone Combined With Heat/Cold Hot Pack Comments tolerated well PT-OP-T Assessment and Plan Start: 12/06/19 12:30 Freq: Status: Active Protocol: Document 12/27/19 09:02 SP (Rec: 12/27/19 09:49 SP [id number]) Physical Therapy Assessment Goals Three Impairment Pt demonstrates significant hip weakness Custodial Goal (LTG) Pt to improve gross hip MMT to 4/5 to enable him to improve spinal stability, allowing for proper body mechanics while lifting objects at work. 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 Pt stated decreased pain from 8/10 pre to 5/10 post tx. Physical Therapy Plan Frequency and Duration Frequency of Treatment 2x/Week Duration of Treatment 12 weeks Plan of Care Start Date 12/06/19 Plan of Care End Date 02/28/20 Therapeutic Interventions Therapeutic Interventions Aquatic Therapy,Home Exercise Program,Joint Mobilizations, Manual Therapy,Neuromuscular Re-education,Patient/Caregiver Education,Self-Care/Home Management,Soft Tissue Mobilization,Therapeutic Activities,Therapeutic Exercises Modalities Cold Pack/Ice Massage,Electric Stimulation,Hot Packs, Infrared Therapy,Traction- Mechanical,Ultrasound Next Visit Focus/Plan Next Note Type Treatment Note Next Visit Plan Assess reponse to last tx: core bridge, resisted side stepping and LTR and stand cat camel for flexibiity added to HEP last tx tolerance and performance proper form. Continue per PT POC: STM, Flexibility, pain-control modalities, hip and core strengthening
--- NOTE | 2020-06-19 17:17 | PT.OPDS ---
Current Diagnoses Stiffness of unspecified joint, not elsewhere classified (12/27/19) Lumbago with sciatica, unspecified side (12/27/19) Muscle weakness (generalized) (12/27/19) Strain of muscle, fascia and tendon of lower back, subsequent encounter (12/27/19) Visit Care Team Role Provider Type Viridiana Plasencia DO Attending Provider Non-Staff Primary Care Provider Specialty: [facility] Address: [address] [place] [address], [address], [facility] Email: [email or web address] Visit Number Visit Number 3 Discharge Summary PT-OP-B Current Condition Start: 12/06/19 12:30 Freq: Status: Active Protocol: Document 12/06/19 10:30 DCW (Rec: 12/06/19 12:50 DCW [id number]) Current Condition History of Current Condition Onset Date ~4 years Current Complaints Low back pain, stiffness, decreased functional mobility History of Current Condition Pt is a 39 year old male with an approximately 4 year history of low back pain. Pt has a long standing history of multiple left knee problems, resulting in two surgeries over the last four years. Nearly four years ago, he fell down stairs, which resulted in a meniscus tear and ACL sprain,. Between the fall and change in his gait pattern, pt began to get severe back pain . 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 Pt reports his only relief is pain meds and his TENS unit. Notes his pain averages a 7/10, but is a 5/10 at absolute best, and a 10/10 at worst. Prior Treatments and Tests PCP recommended lumbar x-ray, however has not yet received PT-OP-C Subjective Start: 12/06/19 12:30 Freq: Status: Active Protocol: Document 12/27/19 09:02 SP (Rec: 12/27/19 09:49 SP [id number]) OP-PT Subjective Patient Comments Patient Comments Pt reported same LBP 7/10 pre PT, PT-OP-F Manual Assessment Start: 12/06/19 12:30 Freq: Status: Active Protocol: Document 12/06/19 10:30 DCW (Rec: 12/06/19 14:52 DCW [id number]) Manual Assessments Soft Tissue Assessment Soft Tissue Mobility Assessment Moderate tone with tenderness to palpation 3/4: Wincing and withdraw along bilateral piriformis, QL, and thoracic/ lumbar paraspinals Joint Mobility Assessment Joint Mobility Assessment Hypomobility and Tenderness to palpation 3/4: Wincing and withdraw along T-6-L5, as well as tenderness along bilateral SI PT-OP-K Range of Motion Start: 12/06/19 12:30 Freq: Status: Active Protocol: Document 12/06/19 10:30 DCW (Rec: 12/06/19 14:52 DCW [id number]) Lumbar Spine Range of Motion Lumbar Spine Active Degrees Testing Position Sitting Flexion 12 Extension 4 Rotation Left 6 Rotation Right 6 ROM Limitations Pain Comments Very minimal mobility before moderate-severe pain reaction PT-OP-L Special Tests Start: 12/06/19 12:30 Freq: Status: Active Protocol: Document 12/06/19 10:30 DCW (Rec: 12/06/19 14:52 DCW [id number]) Special Tests Lumbar Spine Special Tests Vertical Spine Loading Test Results Positive Standing Flexion Test Results Positive Straight Leg Raise Test Results Positive Bilaterally Slump Test Results Negative Passive Neck Flexion Test Results Positive Manual Traction Test Results Positive for pain Compression Test Results Positive Hip Special Tests Dayan's Test Test Results Positive bilaterally JIGNA Test Results Positive bilaterally PT-OP-M Strength Start: 12/06/19 12:30 Freq: Status: Active Protocol: Document 12/06/19 10:30 DCW (Rec: 12/06/19 14:52 DCW [id number]) Trunk Strength Trunk Manual Muscle Testing Core Stabilization Pt has difficulty nas TrA during pelvic tilt, leading to core and hip instability during movement, TrA MMT 3+/5 Hip Strength Hip Manual Muscle Testing Right Flexion (L2) 4+ Good+ Extension (S1) 4- Good- Abduction 3+ Fair+ Adduction 3 Fair Left Flexion (L2) 4+ Good+ Extension (S1) 4- Good- Abduction 3+ Fair+ Adduction 3 Fair Knee Strength Knee Manual Muscle Testing Right Flexion (S2) 5 Normal Extension (L3) 5 Normal Left Flexion (S2) 3+ Fair+ Extension (L3) 3+ Fair+ Reason Not Measured Pain Ankle/Foot Strength Ankle and Foot Manual Muscle Testing Right Dorsiflexion (L4) 4+ Good+ Plantarflexion (S1) 4+ Good+ Left Dorsiflexion (L4) 4+ Good+ Plantarflexion (S1) 4+ Good+ PT-OP-T Assessment and Plan Start: 12/06/19 12:30 Freq: Status: Active Protocol: Document 06/19/20 17:17 DCW (Rec: 06/19/20 17:17 DCW [id number]) Physical Therapy Assessment Assessment Summary Assessment Pt did not return phone calls from scheduling department following reopening of clinic after Covid-19 closure. Pt will be discharged from skilled therapy at this time.
== END 2020-06-20 08:31 ==
LOC: PHYS 09:00
PROVIDERS: PCP Family Medicine; Visit Provider Family Medicine
DX: S39.012D Strain of muscle, fascia and tendon of lower back, subsequent encounter (principal); M25.60 Stiffness of unspecified joint, not elsewhere classified; M62.81 Muscle weakness (generalized); M54.40 Lumbago with sciatica, unspecified side
CPT/HCPCS: 97014; 97110; 97140; 97162; G0283

== ENCOUNTER → 2020-06-14 12:10 | Outpatient (CLI) | payer OTHER, MEDICAID, SELFPAY ==
[2020-06-14 13:14] LABS: Creatinine Urine Random 25.4 mg/dL
[2020-06-14 13:19] LABS: Microalbumi Creatinin Ratio Ur 200.7 ug/mg CR (<30); Microalbumin Urine Random 5.1 mg/dL (0-1.6)
[2020-06-14 13:20] LABS: Alanine Aminotransferase 57 IU/L (<50); Albumin 4.4 g/dL (3.5-5.0); Albumin Globulin Ratio 1.4 (1.0-2.8); Alkaline Phosphatase 152 U/L (38-126); Aspartate Aminotransferase 44 IU/L (17-59); BUN Creatinine Ratio 21.9 (6-22); Bilirubin Total 0.6 mg/dL (0.2-1.3); Blood Urea Nitrogen 14 mg/dL (9-20); Calcium 10.7 mg/dL (8.4-10.2); Carbon Dioxide 18 mmol/L (22-32); Chloride 101 mmol/L (98-107); Cholesterol 256 mg/dL (140-199); Estimated Glomerular Filt Rate > 60.0 mL/min (>60); Globulin 3.2 g/dL (1.7-4.1); Glucose 373 mg/dL (70-100); HDL Cholesterol 36 mg/dL (40-60); HEMOLYSIS < 15 (0-50); Potassium 4.5 mmol/L (3.4-5.1); Sodium 134 mmol/L (137-145); Total Protein 7.6 g/dL (6.3-8.2)
[2020-06-14 13:21] LABS: Hemoglobin A1C% w Est Avg Glu 11.2 % (4.0-6.0)
[2020-06-14 13:31] LABS: Triglycerides 816 mg/dL (35-150)
== END ==
PROVIDERS: PCP Family Medicine; Referring Provider Family Medicine; Visit Provider Family Medicine
DX: E11.9 Type 2 diabetes mellitus without complications (principal); E78.5 Hyperlipidemia, unspecified; I10 Essential (primary) hypertension
CPT/HCPCS: 36415; 80053; 80061; 82043; 82570; 83036

== ENCOUNTER → 2020-10-08 08:54 | Outpatient (CLI) | payer OTHER, MEDICAID, SELFPAY ==
[2020-10-08 10:46] LABS: Alanine Aminotransferase 84 IU/L (<50); Albumin 4.3 g/dL (3.5-5.0); Albumin Globulin Ratio 1.2 (1.0-2.8); Alkaline Phosphatase 151 U/L (38-126); Aspartate Aminotransferase 64 IU/L (17-59); BUN Creatinine Ratio 24.5 (6-22); Bilirubin Total 0.8 mg/dL (0.2-1.3); Blood Urea Nitrogen 12 mg/dL (9-20); Calcium 9.4 mg/dL (8.4-10.2); Carbon Dioxide 22 mmol/L (22-32); Chloride 100 mmol/L (98-107); Estimated Glomerular Filt Rate > 60.0 mL/min (>60); Globulin 3.5 g/dL (1.7-4.1); Glucose 375 mg/dL (70-100); HEMOLYSIS < 15 (0-50); Potassium 4.4 mmol/L (3.4-5.1); Sodium 132 mmol/L (137-145); Total Protein 7.8 g/dL (6.3-8.2)
[2020-10-08 12:32] LABS: Hemoglobin A1C% w Est Avg Glu > 14.0 % (4.0-6.0)
== END ==
PROVIDERS: PCP Family Medicine; Referring Provider Family Medicine; Visit Provider Family Medicine
DX: E11.9 Type 2 diabetes mellitus without complications (principal)
CPT/HCPCS: 36415; 80053; 83036

== ENCOUNTER 2021-02-01 19:18 | Emergency (ER) | payer OTHER, MEDICAID, SELFPAY ==
[2021-02-01 19:32] VITALS: BP 161/92; PULSE 117; RESP 16; TEMP 36.4; O2SAT 97; BMI 35.9
[2021-02-01] MEDS: cephALEXin 250 MG CAPSULE 500 MG PO (21:29)
[2021-02-01] MEDS: cephALEXin 250 MG PREPACK 1 BOTTLE MISC (21:29)
[2021-02-01 21:33] VITALS: BP 148/88; PULSE 80; RESP 18; O2SAT 97
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
== END 2021-02-01 21:35 | disposition home or self-care (01) ==
PROVIDERS: Emergency Provider Emergency Medicine; PCP Family Medicine
DX: T23.272A Burn of second degree of left wrist, initial encounter (principal); T31.0 Burns involving less than 10% of body surface; X08.8XXA Exposure to other specified smoke, fire and flames, initial encounter; L03.114 Cellulitis of left upper limb
CPT/HCPCS: 99282; 99283

== ENCOUNTER → 2021-06-18 09:06 | Outpatient (CLI) | payer OTHER, MEDICAID, SELFPAY ==
[2021-06-18 09:34] LABS: Add Manual Diff / Slide Review NO; Basophils Absolute Auto 100 /uL (0-100); Basophils Percent Auto 1.2 % (0-2); Eosinophils Absolute Auto 200 /uL (0-450); Eosinophils Percent Auto 2.7 % (2-4); Hematocrit 46.8 % (41-53); Hemoglobin 15.7 g/dL (13.5-17.5); Lymphocytes Absolute Auto 3000 /uL (1100-4500); Lymphocytes Percent Auto 34.8 % (25-40); Mean Corpuscular HGB Conc 33.5 % (30-36); Mean Corpuscular Hemoglobin 28.4 PG (26-34); Mean Corpuscular Volume 84.7 fL (80-100); Monocytes Absolute Auto 600 /uL (0-900); Monocytes Percent Auto 7.4 % (3-14); Neutrophils Absolute Auto 4600 /uL (1500-7000); Neutrophils Percent Auto 53.9 % (50-75); Platelet Count 239 X10^3/uL (150-400); Red Blood Cell Count 5.53 X10^6/uL (4.5-5.9); Red Cell Distribution Width 13.7 % (11.6-14.8); White Blood Cell Count 8.5 X10^3/uL (4.5-11.0)
[2021-06-18 09:59] LABS: Alanine Aminotransferase 50 IU/L (<50); Albumin 3.9 g/dL (3.5-5.0); Albumin Globulin Ratio 1.1 (1.0-2.8); Alkaline Phosphatase 203 U/L (38-126); Aspartate Aminotransferase 38 IU/L (17-59); BUN Creatinine Ratio 14.5 (6-22); Bilirubin Total 0.7 mg/dL (0.2-1.3); Blood Urea Nitrogen 11 mg/dL (9-20); Calcium 9.8 mg/dL (8.4-10.2); Carbon Dioxide 28 mmol/L (22-32); Chloride 89 mmol/L (98-107); Cholesterol 309 mg/dL (140-199); Estimated Glomerular Filt Rate > 60.0 mL/min (>60); Globulin 3.5 g/dL (1.7-4.1); HDL Cholesterol 32 mg/dL (40-60); HEMOLYSIS < 15 (0-50); Potassium 3.7 mmol/L (3.4-5.1); Sodium 128 mmol/L (137-145); Total Protein 7.4 g/dL (6.3-8.2)
[2021-06-18 10:13] LABS: Triglycerides 691 mg/dL (35-150)
[2021-06-18 10:29] LABS: Creatinine Urine Random 18.9 mg/dL
[2021-06-18 10:35] LABS: Microalbumi Creatinin Ratio Ur 513.2 ug/mg CR (<30); Microalbumin Urine Random 9.7 mg/dL (0-1.6)
[2021-06-18 10:36] LABS: Glucose 604 mg/dL (70-100)
[2021-06-18 11:00] LABS: Hemoglobin A1C% w Est Avg Glu > 14.0 % (4.0-6.0)
== END ==
PROVIDERS: PCP Family Medicine; Referring Provider Family Medicine; Visit Provider Family Medicine
DX: E11.9 Type 2 diabetes mellitus without complications (principal); E78.2 Mixed hyperlipidemia; I10 Essential (primary) hypertension; Z79.4 Long term (current) use of insulin
CPT/HCPCS: 36415; 80053; 80061; 82043; 82570; 82948; 83036; 85025

== ENCOUNTER 2021-07-20 14:10 | Emergency (ER) | payer OTHER, MEDICAID, SELFPAY ==
[2021-07-20 14:36] VITALS: BP 152/92; PULSE 92; RESP 20; TEMP 36.7; O2SAT 95; BMI 33.5
--- NOTE | 2021-07-20 14:44 | DI.RAD.S_ITS ---
PROCEDURE: XR CHEST 1V INDICATIONS: chest pain TECHNIQUE: One view of the chest was acquired. COMPARISON: [facility], CHEST 2 VIEW, 02/12/2017, 10:02. [facility], , CHEST 2 VIEW, 08/17/2016, 18:58. FINDINGS: Surgical changes and devices: None. Lungs and pleura: Lungs are clear. No pleural effusions or pneumothorax. Mediastinum: Mediastinal contours appear normal. Heart size is normal. Bones and chest wall: No suspicious bony lesions. Overlying soft tissues appear unremarkable. IMPRESSION: No acute cardiopulmonary abnormality. Dictated by: Sigifredo Chew M.D. on 07/20/2021 at 14:59 Approved by: Sigifredo Chew M.D. on 07/20/2021 at 14:59
[2021-07-20 14:51] VITALS: BP 146/95; PULSE 89; RESP 21; O2SAT 94
[2021-07-20 15:00] VITALS: PULSE 87; RESP 30; O2SAT 95
--- NOTE | 2021-07-20 15:17 | ED.EXTPRO ---
HPI - Extremity Problem General Chief complaint: Extremity Problem,Nontraumatic Stated complaint: Swollen ankles/feet Time Seen by Provider: 07/20/21 15:04 Source: patient Mode of arrival: Family Vehicle Limitations: no limitations History of Present Illness HPI Narrative: 41-year-old insulin-dependent diabetic male who is here for evaluation of bilateral swollen ankles and feet. He states that the symptoms started a couple days ago. 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 He does think that the right side is worse than the left but he does have swelling both sides. No chest pain. No shortness of breath. No redness over the area. Went to work today and had a difficult time standing secondary to the discomfort. Has never had anything like this in past. Related Data Previous Rx's Medication Instructions Recorded phenylephrine HCl 0.25 % rectal 1 supp DC QIDP PRN #14 supp 11/11/16 suppository (Hemorrhoidal Suppository) fluticasone propionate 50 1 spray INTRANASAL BID #1 bot 07/17/19 mcg/actuation nasal spray,suspension (Flonase Allergy Relief) miscellaneous medical supply 1 each [facility] [place] #1 each 10/12/19 naratriptan 2.5 mg tablet 2.5 mg PO .COMPLEX #12 tab 04/16/20 Glucose: Test Strips #1 ea 07/23/20 Lancets #1 ea 07/23/20 azelastine 137 mcg (0.1 %) nasal 1 spray INTRANASAL BID #1 bot 07/23/20 spray aerosol metformin 1,000 mg tablet See Rx Instructions .ROUTE 10/29/20 .COMPLEX #180 tablet albuterol sulfate 90 mcg/actuation 90 mcg INHALATION QID PRN #1 04/14/21 aerosol inhaler (Ventolin HFA) inhalation fluticasone propionate 44 1 inh INHALATION BID #10.6 gram 04/14/21 mcg/actuation HFA aerosol inhaler (Flovent HFA) aluminum chloride 20 % topical 1 applic TOP QWEEK PRN #60 ml 06/18/21 solution (Drysol) atorvastatin 80 mg tablet See Rx Instructions .ROUTE 06/18/21 .COMPLEX #90 tab blood-glucose meter #1 ea 06/18/21 clotrimazole-betamethasone 1 1 applic TOPICAL BID #15 gram 06/18/21 %-0.05 % topical cream cyclobenzaprine 10 mg tablet See Rx Instructions .ROUTE 06/18/21 .COMPLEX #90 tab dapagliflozin 5 mg tablet (Farxiga) 10 mg PO DAILY #180 tab 06/18/21 insulin glargine U-300 conc 300 110 unit SUBCUT BID #6 ml 06/18/21 unit/mL (3 mL) subcutaneous pen insulin lispro 100 unit/mL 10 unit SUBCUT QAC #15 ml 06/18/21 subcutaneous pen (Humalog KwikPen (U-100) Insulin) ketoconazole 2 % shampoo 1 applic TOPICAL Q7DAYS #120 ml 06/18/21 lidocaine HCl 2 % mucosal jelly 1 applic TOPICAL Q6HP PRN #30 ml 06/18/21 lisinopril 20 See Rx Instructions .ROUTE 06/18/21 mg-hydrochlorothiazide 12.5 mg .COMPLEX #90 tablet tablet omeprazole 20 mg tablet,delayed 20 mg PO DAILY #90 tab 06/18/21 release ondansetron 8 mg disintegrating See Rx Instructions .ROUTE 06/18/21 tablet .COMPLEX #20 tab pen needle, diabetic 32 gauge x See Rx Instructions .ROUTE 06/18/21 5/32 (TRUEplus Pen Needle) .COMPLEX #100 ea sertraline 100 mg tablet 100 mg PO QDAY #90 tab 06/18/21 zonisamide 100 mg capsule 200 mg PO DAILY #180 cap 06/18/21 exenatide microspheres 2 mg/0.85 2 mg SUBCUT Q7D #3.4 ml 07/10/21 mL subcutaneous auto-injector ([employer] BCise) oxycodone-acetaminophen 7.5 mg-325 1 tab PO QID #120 tab 07/12/21 mg tablet (Percocet) furosemide 20 mg tablet (Lasix) 20 mg PO DAILY 4 Days #4 tab 07/20/21 Allergies Allergy/AdvReac Type Severity Reaction Status Date / Time amoxicillin [AMOXICILLIN] Allergy Unknown HIVES Verified 07/20/21 14:40 Review of Systems Eyes Eyes: Reports system reviewed and no additional complaints, except as documented Cardiovascular Cardiovascular: Reports system reviewed and no additional complaints, except as documented Respiratory Respiratory: Reports system reviewed and no additional complaints, except as documented Gastrointestinal Gastrointestinal: Reports system reviewed and no additional complaints, except as documented Musculoskeletal Musculoskeletal: Reports system reviewed and no additional complaints, except as documented and Reports as per HPI Integumentary/Breasts Skin/Breast: Reports system reviewed and no additional complaints, except as documented and Reports as per HPI Neurologic Neurologic: Reports system reviewed and no additional complaints, except as documented Hematologic/Lymphatic On Anticoagulants: No Patient History Medical History (Updated 07/20/21 @ 16:06 by Alfredo Law DO) Acquired spondylolysis of lumbar spine Alopecia (Unknown) Anxiety (Unknown) Arthritis (Unknown) Dental infection Diabetes (2016) Fractures (1998) GERD (gastroesophageal reflux disease) (Unknown) Hemorrhoids (Unknown) Hyperlipemia (Unknown) Hypertension (Unknown) Migraines (Unknown) Obstructive sleep apnea (~03/2015) Surgical History History of fundoplication Hx of arthroscopy of left knee (02/2016) Hx of nasal septoplasty (10/2015) Hx of nasal sinusotomy (10/2015) Family History Brother Age: 45 Kidney transplanted Father Asthma Pleurisy Mother Hypertension GERD (gastroesophageal reflux disease) DJD (degenerative joint disease) Sister Seizure Social History Smoking Status: Current every day smoker Tobacco: How many years used: 24 quit status: considering quitting alcohol intake: current (1 drink per month ) substance use type: does not use Smoking Status: Current every day smoker tobacco type: cigarettes alcohol intake frequency: 0-2 drinks per day Substance Use Type: marijuana Exam Initial Vital Signs Initial Vital Signs: Vital Signs Temperature 98.1 F 07/20/21 14:36 Pulse Rate 92 H 07/20/21 14:36 Respiratory Rate 20 07/20/21 14:36 Blood Pressure 152/92 H 07/20/21 14:36 Pulse Oximetry 95 07/20/21 14:36 Const General: cooperative and comfortable HENMT Head: normal to inspection and normocephalic Eyes General: appearance normal, both eyes and all related structures Resp Effort & Inspection: normal respiratory effort Auscultation: clear to auscultation bilaterally Cardio Rate: regular rate Rhythm: regular rhythm Pulses: dorsalis pedis present bilaterally Skin General: no rashes or lesions noted Neuro General: patient alert, patient awake and moves all extremities Other: Patient does have lower extremity swelling. Starts distal to the knees. Right leg swelling worse than right Extrem General: capillary refill normal Psych Appearance: grossly normal and well kempt Course Orders Ordered: ED Orders 07/20/21 14:44 XR chest 1V Stat EKG-12 Lead Stat 07/20/21 15:05 BNP [NT-proBNP (BNP-Adult 18+)] Stat Complete Blood Count AUTO DIFF Stat Comprehensive Metabolic Panel Stat Lipase Stat Troponin & CK Cardiac Panel Stat Vital Signs Vital signs: Vital Signs - 8 hr 07/20/21 14:36 07/20/21 14:51 07/20/21 15:00 Temperature 98.1 F Pulse Rate 92 H 89 87 Respiratory Rate 20 21 30 H Blood Pressure 152/92 H 146/95 H Pulse Oximetry 95 94 95 MDM - Extremity (Nontraumatic) Lab Data Result diagrams: 07/20/21 15:05 07/20/21 15:05 Labs: Lab Results 07/20/21 07/20/21 07/20/21 Range/Units 15:05 15:05 15:05 WBC 8.7 (4.5-11.0) X10^3/uL RBC 5.23 (4.5-5.9) X10^6/uL Hgb 15.0 (13.5-17.5) g/dL Hct 43.8 (41-53) % MCV 83.8 (80-100) fL MCH 28.6 (26-34) PG MCHC 34.2 (30-36) % RDW 13.8 (11.6-14.8) % Plt Count 247 (150-400) X10^3/uL Neut % (Auto) 53.0 (50-75) % Lymph % (Auto) 35.6 (25-40) % [place] % (Auto) 6.1 (3-14) % Eos % (Auto) 4.2 H (2-4) % Baso % (Auto) 1.1 (0-2) % Neut # (Auto) 4600 (7021-7837) /uL Lymph # (Auto) 3100 (3783-3627) /uL [place] # (Auto) 500 (0-900) /uL Eos # (Auto) 400 (0-450) /uL Baso # (Auto) 100 (0-100) /uL Sodium 138 (137-145) mmol/L Potassium 3.0 L (3.4-5.1) mmol/L Chloride 101 (98-107) mmol/L Carbon Dioxide 30 (22-32) mmol/L BUN 9 (9-20) mg/dL Creatinine 0.60 L (0.66-1.25) mg/dL Estimated GFR > 60.0 (>60) mL/min BUN/Creatinine Ratio 15.0 (6-22) Glucose 212 H (70-100) mg/dL Calcium 9.2 (8.4-10.2) mg/dL Total Bilirubin 0.5 (0.2-1.3) mg/dL AST 28 (17-59) IU/L ALT 42 (<50) IU/L Alkaline Phosphatase 106 (38-126) U/L Total Creatine Kinase 86 (55-170) U/L CK-MB (CK-2) TNP CK-MB (CK-2) Rel Index TNP Troponin I < 0.012 (0.01-0.034) ng/mL NT-Pro-B Natriuret Pep 71 (<125) pg/mL Total Protein 7.2 (6.3-8.2) g/dL Albumin 4.0 (3.5-5.0) g/dL Globulin 3.2 (1.7-4.1) g/dL Albumin/Globulin Ratio 1.3 (1.0-2.8) Lipase 85 (23-300) U/L Point of Care Testing Glucose POC 206 Imaging Data Chest x-ray: Radiologist's Impression: [address] [address] XRay Report Signed Patient: Josh Hidalgo MR#: [id number] : 1980 Acct:[id number] Age/Sex: 41 / M Date of Service: 07/20/21 Loc: ED Accession Number: [id number] ?? Procedure: XR chest 1V Ordering Provider: Alfredo Law D.O. PROCEDURE:? XR CHEST 1V ? INDICATIONS:? chest pain ? TECHNIQUE:? One view of the chest was acquired.? ? COMPARISON:? [facility], CHEST 2 VIEW, 02/12/2017, 10:02.? [facility], CR, CHEST 2 VIEW, 08/17/2016, 18:58. ? FINDINGS:? ? Surgical changes and devices:? None.? ? Lungs and pleura:? Lungs are clear.? No pleural effusions or pneumothorax.? ? Mediastinum:? Mediastinal contours appear normal.? Heart size is normal.? ? Bones and chest wall:? No suspicious bony lesions.? Overlying soft tissues appear unremarkable.? ? IMPRESSION:? No acute cardiopulmonary abnormality. ? ? ? Dictated by: Sigifredo Chew M.D. on 07/20/2021 at 14:59 ? ? Approved by: Sigifredo Chew M.D. on 07/20/2021 at 14:59 ECG Data Attestation EKG: I personally reviewed and interpreted this ECG as follows: Interpretation: Sinus rhythm Ventricular rate 80 Normal axis Normal QRS Normal QTC No ST T wave changes MDM Narrative Medical decision making narrative: Patient does have bilateral lower extremity swelling. Low suspicion for cellulitis. Low suspicion for DVT. I suspect this is related to his standing/diabetes. We will start him on a water pill for the next couple days. He was given return precautions and follow-up instructions. He expressed understanding and agreement. Discharge Plan Departure Patient Disposition: Home Clinical Impression: Bilateral lower extremity edema Instructions: Edema (Alternative Therapy), Edema Activity Restrictions/Additional Instructions: You were given a 1st dose of a water pill today called Lasix. A prescription was sent to the pharmacy of your choice. Please start taking tomorrow. Will cause you to urinate. Contact your primary doctor for follow-up. Continue take all of your medications as directed. Return to the emergency department for any new or worsening symptoms Prescriptions: New furosemide [Lasix] 20 mg tablet 20 mg PO DAILY 4 Days Qty: 4 RF: 0 No Action phenylephrine HCl [Hemorrhoidal Suppository] 0.25 % suppository 1 supp DC QIDP PRNQty: 14 RF: 6 azelastine 137 mcg (0.1 %) aerosol,spray 1 spray Intranasal BID Qty: 1 RF: 12 (DME) Glucose: Test Strips 100 Strips See Rx Instructions .Route .MEDSUPPLY Qty: 1 RF: 6 (DME) Lancets 100 LANCETS See Rx Instructions .Route .MEDSUPPLY Qty: 1 RF: 5 albuterol sulfate [Ventolin HFA] 90 mcg/actuation HFA aerosol inhaler 90 mcg Inhalation QID PRN (Reason: shortness of breath or wheezing) Qty: 1 RF: 2 Flovent HFA 44 mcg/actuation HFA aerosol inhaler 1 inh INHALATION BID Qty: 10.6 RF: 1 Bydureon BCise 2 mg/0.85 mL auto-injector 2 mg SUBCUT Q7D Qty: 3.4 RF: 6 oxycodone-acetaminophen [Percocet] 7.5-325 mg tablet 1 tab PO QID Qty: 120 RF: 0 fluticasone propionate [Flonase Allergy Relief] 50 mcg/actuation spray,suspension 1 spray Intranasal BID Qty: 1 RF: 11 miscellaneous medical supply Misc 1 each MISC DAILY Qty: 1 RF: 0 naratriptan 2.5 mg tablet 2.5 mg PO .COMPLEX Qty: 12 RF: 11 metformin 1,000 mg tablet See Rx Instructions .ROUTE .COMPLEX Qty: 180 RF: 3 (DME) blood-glucose meter Kit See Rx Instructions .ROUTE .MEDSUPPLY Qty: 1 RF: 0 Farxiga 5 mg tablet 10 mg PO DAILY Qty: 180 RF: 1 ketoconazole 2 % shampoo 1 applic Topical Q7DAYS Qty: 120 RF: 1 aluminum chloride [Drysol] 20 % solution 1 applic TOP QWEEK PRN (Reason: hyperhidrosis) Qty: 60 RF: 1 atorvastatin 80 mg tablet See Rx Instructions .ROUTE .COMPLEX Qty: 90 RF: 3 clotrimazole-betamethasone 1-0.05 % cream 1 applic Topical BID Qty: 15 RF: 1 cyclobenzaprine 10 mg tablet See Rx Instructions .ROUTE .COMPLEX Qty: 90 RF: 1 lidocaine HCl 2 % jelly 1 applic Topical Q6HP PRN (Reason: pain) Qty: 30 RF: 1 lisinopril-hydrochlorothiazide 20-12.5 mg tablet See Rx Instructions .ROUTE .COMPLEX Qty: 90 RF: 2 omeprazole 20 mg tablet,delayed release (DR/EC) 20 mg PO DAILY Qty: 90 RF: 1 ondansetron 8 mg tablet,disintegrating See Rx Instructions .ROUTE .COMPLEX Qty: 20 RF: 1 pen needle, diabetic [TRUEplus Pen Needle] 32 gauge x 5/32 needle See Rx Instructions .ROUTE .COMPLEX Qty: 100 RF: 0 sertraline 100 mg tablet 100 mg PO QDAY Qty: 90 RF: 3 zonisamide 100 mg capsule 200 mg PO DAILY Qty: 180 RF: 3 insulin glargine U-300 conc 300 unit/mL (3 mL) insulin pen 110 unit SUBCUT BID Qty: 6 RF: 10 insulin lispro [Humalog KwikPen Insulin] 100 unit/mL insulin pen 10 unit SUBCUT QAC Qty: 15 RF: 10 Referrals: Ernie Tamayo, [Primary Care Provider] -
[2021-07-20 15:21] LABS: Add Manual Diff / Slide Review NO; Basophils Absolute Auto 100 /uL (0-100); Basophils Percent Auto 1.1 % (0-2); Eosinophils Absolute Auto 400 /uL (0-450); Eosinophils Percent Auto 4.2 % (2-4); Hematocrit 43.8 % (41-53); Lymphocytes Absolute Auto 3100 /uL (1100-4500); Lymphocytes Percent Auto 35.6 % (25-40); Mean Corpuscular HGB Conc 34.2 % (30-36); Mean Corpuscular Hemoglobin 28.6 PG (26-34); Mean Corpuscular Volume 83.8 fL (80-100); Monocytes Absolute Auto 500 /uL (0-900); Monocytes Percent Auto 6.1 % (3-14); Neutrophils Absolute Auto 4600 /uL (1500-7000); Platelet Count 247 X10^3/uL (150-400); Red Blood Cell Count 5.23 X10^6/uL (4.5-5.9); Red Cell Distribution Width 13.8 % (11.6-14.8); White Blood Cell Count 8.7 X10^3/uL (4.5-11.0)
[2021-07-20 15:30] VITALS: PULSE 86; RESP 22; O2SAT 93
[2021-07-20 15:37] LABS: Alanine Aminotransferase 42 IU/L (<50); Albumin Globulin Ratio 1.3 (1.0-2.8); Alkaline Phosphatase 106 U/L (38-126); Aspartate Aminotransferase 28 IU/L (17-59); Bilirubin Total 0.5 mg/dL (0.2-1.3); Blood Urea Nitrogen 9 mg/dL (9-20); Calcium 9.2 mg/dL (8.4-10.2); Carbon Dioxide 30 mmol/L (22-32); Chloride 101 mmol/L (98-107); Creatine Kinase 86 U/L (55-170); Estimated Glomerular Filt Rate > 60.0 mL/min (>60); Globulin 3.2 g/dL (1.7-4.1); Glucose 212 mg/dL (70-100); HEMOLYSIS < 15 (0-50); Lipase 85 U/L (23-300); Sodium 138 mmol/L (137-145); Total Protein 7.2 g/dL (6.3-8.2)
[2021-07-20 15:45] LABS: NT-proBNP (BNP-Adult 18+) 71 pg/mL (<125)
[2021-07-20 15:48] LABS: Troponin I < 0.012 ng/mL (0.01-0.034)
[2021-07-20 16:00] VITALS: BP 146/63; PULSE 76; RESP 22; O2SAT 94
[2021-07-20] MEDS: FUROSEMIDE 40 MG/4 ML VIAL IV (16:21)
== END 2021-07-20 16:45 | disposition home or self-care (01) ==
PROVIDERS: Emergency Provider Emergency Medicine; PCP Family Medicine
DX: R60.0 Localized edema (principal); R07.9 Chest pain, unspecified
CPT/HCPCS: 36415; 71045; 80053; 82550; 82962; 83690; 83880; 84484; 85025; 93005; 96374; 99284; J1940

== ENCOUNTER → 2021-09-17 09:08 | Outpatient (CLI) | payer OTHER, MEDICAID, SELFPAY ==
--- NOTE | 2021-09-17 09:10 | DI.RAD.S_ITS ---
PROCEDURE: XR KNEE LT 3V INDICATIONS: Progressive left knee pain TECHNIQUE: 3 views of the knee were acquired. COMPARISON: None. FINDINGS: Bones: No fractures or dislocations. No suspicious bony lesions. Mild medial joint space narrowing. Scattered degenerative subchondral sclerosis and spurring. Soft tissues: No joint effusion. No suspicious soft tissue calcifications. Anterior soft tissue swelling. IMPRESSION: Mild left knee joint degeneration. Dictated by: Newton Echols M.D. on 09/17/2021 at 13:09 Approved by: Newton Echols M.D. on 09/17/2021 at 13:15
[2021-09-17 10:29] LABS: Alanine Aminotransferase 62 IU/L (<50); Albumin 4.3 g/dL (3.5-5.0); Albumin Globulin Ratio 1.4 (1.0-2.8); Alkaline Phosphatase 173 U/L (38-126); Aspartate Aminotransferase 41 IU/L (17-59); BUN Creatinine Ratio 17.5 (6-22); Bilirubin Total 0.7 mg/dL (0.2-1.3); Blood Urea Nitrogen 14 mg/dL (9-20); Calcium 9.9 mg/dL (8.4-10.2); Carbon Dioxide 29 mmol/L (22-32); Chloride 91 mmol/L (98-107); Estimated Glomerular Filt Rate > 60.0 mL/min (>60); Globulin 3.1 g/dL (1.7-4.1); Glucose 365 mg/dL (70-100); HEMOLYSIS < 15 (0-50); Sodium 130 mmol/L (137-145); Total Protein 7.4 g/dL (6.3-8.2)
[2021-09-17 15:22] LABS: Hemoglobin A1C% w Est Avg Glu > 14.0 % (4.0-6.0)
== END ==
PROVIDERS: PCP Family Medicine; Referring Provider Family Medicine; Visit Provider Family Medicine
DX: E11.65 Type 2 diabetes mellitus with hyperglycemia (principal); M25.562 Pain in left knee; I10 Essential (primary) hypertension; M17.12 Unilateral primary osteoarthritis, left knee; G89.29 Other chronic pain
CPT/HCPCS: 36415; 73562; 77080; 80053; 83036

== ENCOUNTER → 2022-06-18 10:00 | Outpatient (CLI) | payer OTHER, MEDICAID, SELFPAY ==
[2022-06-18 10:37] LABS: Add Manual Diff / Slide Review NO; Basophils Absolute Auto 100 /uL (0-100); Eosinophils Absolute Auto 600 /uL (0-450); Eosinophils Percent Auto 5.7 % (2-4); Hemoglobin 16.2 g/dL (13.5-17.5); Lymphocytes Absolute Auto 4400 /uL (1100-4500); Lymphocytes Percent Auto 44.8 % (25-40); Mean Corpuscular HGB Conc 35.2 % (30-36); Mean Corpuscular Hemoglobin 28.6 PG (26-34); Mean Corpuscular Volume 81.2 fL (80-100); Monocytes Absolute Auto 700 /uL (0-900); Neutrophils Absolute Auto 4000 /uL (1500-7000); Neutrophils Percent Auto 41.5 % (50-75); Platelet Count 279 X10^3/uL (150-400); Red Blood Cell Count 5.66 X10^6/uL (4.5-5.9); Red Cell Distribution Width 14.2 % (11.6-14.8); White Blood Cell Count 9.7 X10^3/uL (4.5-11.0)
[2022-06-18 12:28] LABS: Alanine Aminotransferase 30 IU/L (<50); Albumin 4.2 g/dL (3.5-5.0); Albumin Globulin Ratio 1.3 (1.0-2.8); Alkaline Phosphatase 146 U/L (38-126); Aspartate Aminotransferase 26 IU/L (17-59); Bilirubin Total 0.7 mg/dL (0.2-1.3); Blood Urea Nitrogen 6 mg/dL (9-20); Calcium 9.2 mg/dL (8.4-10.2); Carbon Dioxide 26 mmol/L (22-32); Chloride 99 mmol/L (98-107); Estimated Glomerular Filt Rate > 60 mL/min (>60); Globulin 3.2 g/dL (1.7-4.1); Glucose 385 mg/dL (70-100); HEMOLYSIS < 15 (0-50); Potassium 3.9 mmol/L (3.4-5.1); Sodium 135 mmol/L (137-145); Total Protein 7.4 g/dL (6.3-8.2)
[2022-06-18 14:31] LABS: TSH w/ Reflex to FT4 1.86 uIU/mL (0.47-4.68)
[2022-06-18 19:55] LABS: Hemoglobin A1C% w Est Avg Glu 13.3 % (4.0-6.0)
== END ==
PROVIDERS: PCP Family Medicine; Referring Provider Family Medicine; Visit Provider Family Medicine
DX: E11.9 Type 2 diabetes mellitus without complications (principal); E78.5 Hyperlipidemia, unspecified; G89.29 Other chronic pain; I10 Essential (primary) hypertension
CPT/HCPCS: 36415; 80053; 83036; 84443; 85025

== ENCOUNTER → 2022-07-29 13:47 | Outpatient (CLI) | payer OTHER, MEDICAID, SELFPAY ==
--- NOTE | 2022-07-29 13:49 | DI.MRI.S_ITS ---
PROCEDURE: MR KNEE LT WO CON INDICATIONS: Progressive pain discomfort, locking knee increasing swellin TECHNIQUE: Noncontrast sagittal PD fast spin echo and T2 fast spin echo with fat saturation, sagittal 3-D FLASH with fat saturation; coronal T1 spin echo and PD fast spin echo with fat saturation, and axial PD fast spin echo with fat saturation through the knee. COMPARISON: [facility], MR, KNEE WITHOUT CONTRAST, 01/14/2016, 18:00. FINDINGS: Image quality: Excellent. Menisci: Status post repair of medial meniscus. There is linear oblique high T2 signal intensity traversing the posterior horn medial meniscus, demonstrating inferior articular surface extension, possibly indicating oblique tearing of the meniscal remnant. Lateral meniscus is intact. intact. Cruciate ligaments: The anterior and posterior cruciate ligaments appear intact. There is mild T2 signal elevation along the course of the anterior cruciate ligament. Medial structures: The medial collateral ligament appears intact. Visualized portions of the pes anserinus tendons appear normal. No abnormal bursal fluid. Lateral structures: The lateral collateral ligament, long and short heads of the biceps femoris tendon appear intact. The popliteus tendon appears normal. Iliotibial band appears normal. Anterior structures: The quadriceps and patellar tendons appear intact. Patellar alignment is normal. No femoral trochlear dysplasia or ventral trochlear prominence. No edema in the infrapatellar fat pad. Bones and cartilage: No bone marrow contusions or fractures. There is mild tricompartmental periarticular osteophyte formation. Moderate articular cartilage loss diffusely overlies the weight-bearing aspects of the medial femoral condyle and medial tibial plateau. There is articular cartilage fibrillation overlying the medial and lateral patellar facets. Superimposed 4 mm diameter region of high-grade articular cartilage loss overlies the lateral patellar apex. Joint space: There is a small knee joint effusion.. No Torre's cyst. Normal appearing synovial plicae are incidentally noted. IMPRESSION: 1. Postsurgical sequelae. Possible tearing of the posterior horn medial meniscal remnant. 2. Myxoid degeneration of the anterior cruciate ligament. 3. Tricompartmental osteoarthritis with associated articular cartilage loss. Dictated by: Amelia Sewell M.D. on 07/29/2022 at 15:45 Transcribed by: SUNDAY on 07/29/2022 at 15:47 Approved by: Amelia Sewell M.D. on 07/29/2022 at 16:55
== END ==
PROVIDERS: PCP Family Medicine; Referring Provider Family Medicine; Visit Provider Family Medicine
DX: M17.12 Unilateral primary osteoarthritis, left knee (principal); M25.462 Effusion, left knee; M25.562 Pain in left knee; G89.29 Other chronic pain
CPT/HCPCS: 73721

== ENCOUNTER → 2022-09-02 12:39 | Outpatient (CLI) | payer OTHER, MEDICAID, SELFPAY ==
--- NOTE | 2022-09-02 | DI.RAD.S_ITS ---
PROCEDURE: XR FOOT LT MIN 3V INDICATIONS: bursitis of both feet TECHNIQUE: 3 views of the foot were acquired. COMPARISON: None. FINDINGS: Bones: There is mild pes planus with weight-bearing. Calcaneal pitch angle measures 15 degrees. No fracture or dislocation. Mild forefoot joint osteoarthritis is seen with joint space narrowing and subchondral sclerosis. No suspicious bony lesion. No fracture or dislocation. Soft tissues: No tibiotalar joint effusion. Achilles tendon appears normal. IMPRESSION: Mild pes planus with weight-bearing. No fracture or dislocation. Mild forefoot joint osteoarthritis. Dictated by: Benedict Lee M.D. on 09/02/2022 at 13:47 Approved by: Benedict Lee M.D. on 09/02/2022 at 13:48
--- NOTE | 2022-09-02 | DI.RAD.S_ITS ---
PROCEDURE: XR FOOT RT MIN 3V INDICATIONS: bursitis of both feet TECHNIQUE: 3 views of the foot were acquired. COMPARISON: None. FINDINGS: Bones: There is mild pes planus with weight-bearing. Calcaneal pitch angle measures 15 degrees. Mild lateral deviation of 1st distal phalanx at 1st interphalangeal joint is seen. Mild forefoot joint osteoarthritic changes are seen with joint space narrowing and subchondral sclerosis. No fractures or dislocations. Small plantar and dorsal calcaneal enthesophytes are seen. No suspicious bony lesions. Soft tissues: No tibiotalar joint effusion. Achilles tendon appears normal. IMPRESSION: Mild pes planus with weight-bearing. Slight lateral deviation at 1st interphalangeal joint. No fracture or dislocation. Mild forefoot joint osteoarthritis. Dictated by: Benedict Lee M.D. on 09/02/2022 at 13:44 Approved by: Benedict Lee M.D. on 09/02/2022 at 13:47
== END ==
PROVIDERS: PCP Family Medicine; Referring Provider Podiatrist Foot & Ankle Surgery; Visit Provider Podiatrist Foot & Ankle Surgery
DX: M19.072 Primary osteoarthritis, left ankle and foot (principal); M19.071 Primary osteoarthritis, right ankle and foot; M77.51 Other enthesopathy of right foot and ankle; M77.52 Other enthesopathy of left foot and ankle; M21.42 Flat foot [pes planus] (acquired), left foot; M21.41 Flat foot [pes planus] (acquired), right foot
CPT/HCPCS: 73630

== ENCOUNTER 2023-01-25 12:00 | Outpatient (RCR) | payer OTHER, MEDICAID, SELFPAY ==
--- NOTE | 2023-01-15 15:10 | PT.OIE ---
Current Diagnoses Pain in left knee (01/15/23) Other abnormalities of gait and mobility (01/15/23) Weakness (01/15/23) Other specified postprocedural states (01/15/23) Past Medical History (Last Reviewed 10/22/22 @ 18:44 by Ernie Tamayo DO) Acquired spondylolysis of lumbar spine Alopecia (Unknown) Anxiety (Unknown) Arthritis (Unknown) Bilateral foot pain Chronic pain Dental infection Diabetes (2015) Diabetic neuropathy Fractures (1997) GERD (gastroesophageal reflux disease) (Unknown) Hemorrhoids (Unknown) Hyperlipemia (Unknown) Hypertension (Unknown) Left knee pain Migraines (Unknown) Obstructive sleep apnea (~03/2015) Past Surgical History (Last Reviewed 06/24/22 @ 15:14 by Ernie Tamayo DO) History of fundoplication History of Brianne fundoplication Hx of arthroscopy of left knee (02/2016) Hx of nasal septoplasty (10/2015) Hx of nasal sinusotomy (10/2015) Visit Care Team Role Provider Type Ernie Tamayo DO Family Provider Physician Primary Care Provider Specialty: Family Practice Address: [address] [place] [address], [id number] Email: [email or web address] Attending Provider Non-Staff Referring Provider Specialty: Medical Address: [facility], [address] [place] [address], [id number] Email: Physical Therapy Initial Evaluation PT-OP-A Visit Information Start: 01/15/23 14:33 Freq: Status: Active Protocol: Document 01/15/23 12:00 DCW (Rec: 01/15/23 14:56 DCW [id number]) Out-Patient Physical Therapy Visit Information Visit Information Visit Type Initial Evaluation Visit Start Time 12:00 Visit Stop Time 12:35 Total Visit Minutes 35 Visit Number 1 Number of EXPORT PACKER Visits 0 Evaluation Information Evaluation Date 01/15/23 PT-OP-B Current Condition Start: 01/15/23 14:33 Freq: Status: Active Protocol: Document 01/15/23 12:00 DCW (Rec: 01/15/23 14:56 DCW [id number]) Current Condition History of Current Condition Onset Date 10/28/22 Current Complaints Left knee pain s/p meniscus repair History of Current Condition Pt is a 42 year old male presenting to skilled therapy 2.5 months s/p left posterior horn meniscus repair. Pt reports he was told at his follow-up surgical appointment in the beginning of December that he needed another month of bed rest. Reports that this is his third left knee surgery in the past seven years, and that his surgeon told him after this one, he would likely need a TKA at some point in the next year, as he has no cartilage left in his knee. Pt very frustrated, feels like he is currently having more pain and gait restrictions than he had prior to surgery. Still using a SPC or crutches to get around, reports he can't walk or even bend his knee without pain, pain prevents him from sleeping more than 3-4 hours a night. Biggest functional complaint from pt is that he is unable to play with his children, he has a six-year old son and is unable to join him in any activity that involves walking or even standing. Has been compliant with his post-op HEP, but just SLR and knee flexion/heel slides cause extreme pain. Reports that if he stands for an hour to help his with something, he then has to spend the next 2-3 days in bed recovering. Personal Factors Other Personal Factors That May Effect Uncontrolled DM II, Severe Therapy/Recovery neuropathy, HTN, Migraine, Lumbar spondylolysis PT-OP-C Subjective Start: 01/15/23 14:33 Freq: Status: Active Protocol: Document 01/15/23 12:00 [facility] (Rec: 01/15/23 14:56 [facility] [id number]) OP-PT Subjective Patient Comments Patient Comments I have a lot of crutches spread throughout my house just so I have something to grab ahold of if I'm walking and my leg gives out. Patient Reported Progress Worse Patient Questionnaires Lower Extremity Functional Scale LEFS Score 17/80 = 21.25% LEFS Impairment 60 to 79% Impaired (Score 17- 31) OP-PT Pain Assessment Location Left Knee Intensity 8 Scale Used Numeric (0 - 10) Description Sharp,Stabbing,Tender, Throbbing Frequency Constant PT-OP-E Functional Tests Start: 01/15/23 14:35 Freq: Status: Active Protocol: Document 01/15/23 12:00 DCW (Rec: 01/15/23 14:56 DCW [id number]) Functional Tests 2 Minute Walk Test Distance 241' Device Used SPC Comments pain 5/10 pre, 8/10 post Timed Up and Go (TUG) Score 15.98 seconds /c SPC Comments Three-trial average (16.59, 16 .13, 15.23) TUG Impairment Rating 60 to <80% Impaired (Score 16- 17) PT-OP-F Manual Assessment Start: 01/15/23 14:33 Freq: Status: Active Protocol: Document 01/15/23 12:00 DCW (Rec: 01/15/23 14:56 DCW [id number]) Manual Assessments Soft Tissue Assessment Soft Tissue Mobility Assessment Tenderness to palpation 3/4: Wincing and withdraw along entire left knee complex, worst and medial joint line PT-OP-G Mobility & Gait Start: 01/15/23 14:33 Freq: Status: Active Protocol: Document 01/15/23 12:00 DCW (Rec: 01/15/23 14:56 DCW [id number]) OP Gait Assessment Gait Gait Assistance Required: Standby Assistance Distance (Feet) 241 Assistive Devices Assistive Device Straight Cane Gait Deviations General Gait Pattern Antalgic,Decreased Stride Length,Decreased Feet Clearance,Lateral Trunk Lean Factors Limiting Gait Function Factors Limiting Gait Function Decreased Activity Tolerance, Decreased Strength,Pain PT-OP-K Range of Motion Start: 01/15/23 14:33 Freq: Status: Active Protocol: Document 01/15/23 12:00 DCW (Rec: 01/15/23 14:56 DCW [id number]) Knee Goniometric Range of Motion Knee Left Knee ROM WFL Yes Patient Position Supine Flexion Active (degrees) 148 Extension Active (degrees) 3 Comments No extension lag PT-OP-L Special Tests Start: 01/15/23 14:56 Freq: Status: Active Protocol: Document 01/15/23 12:00 DCW (Rec: 01/15/23 14:57 DCW [id number]) Special Tests Knee Special Tests Patella Tap Test Results Positive left PT-OP-M Strength Start: 01/15/23 14:33 Freq: Status: Active Protocol: Document 01/15/23 12:00 DCW (Rec: 01/15/23 14:56 DCW [id number]) Knee Strength Knee Manual Muscle Testing Left Flexion (S2) 3+ Fair+ Extension (L3) 3+ Fair+ Comments Able to support himself on left leg, but unable to tolerate any resistance through knee secondary to severe pain PT-OP-T Assessment and Plan Start: 01/15/23 14:33 Freq: Status: Active Protocol: Document 01/15/23 12:00 DCW (Rec: 01/15/23 15:10 DCW [id number]) Physical Therapy Assessment Rehab Potential Rehabilitation Potential Fair Evaluation Complexity Number of Personal Factors/Comorbidities 3 or More Number of Body Systems Impaired 4 or More Clinical Presentation at Evaluation Unstable Impairments Impairments Activity Tolerance,Edema, Functional Activities, Functional Mobility,Gait,Pain, Sensation,Soft Tissue Mobility ,Strength,Tone Goals Three Impairment Pt ambulates 241 feet using SPC during a two minute walk test Chcf Goal (LTG) Pt to tolerate performing a six minute walk test without requiring a rest break, while ambulating at least 600' without an assistive device to demonstrate improved activity tolerance LTG Duration 03/17/23 Two Impairment Pt unable to complete ascending a full flight of stairs Silk Screen Printer Helper Goal (LTG) Pt to demonstrate ability to ascend and descend a flight of at least 12 steps without requiring a recovery period afterward. LTG Duration 03/17/23 One Impairment Pt cannot tolerate standing longer than 10 minutes without severe pain Chcf Goal (LTG) Pt to report ability to help his with chores for one hour without requiring more than 2 hours recovery LTG Duration 03/17/23 Assessment Summary Assessment Pt presents to skilled therapy with severe limitations following left posterior meniscus repair. Pt does display nearly full ROM, measuring at 3?-148?, however is significantly limited in all other areas. Pt unable to stand longer than 5-10 minutes without severe increases in pain, had to take an extended rest break to recover after performing a two minute walk test, and continues to have significant joint effusion and tenderness to palpation. Barriers to rehab include pt's seemingly poorly controlled diabetes, neuropathy, very poor activity tolerance, and difficulty sleeping due to poor pain control. May benefit from skilled therapy focusing on strengthening, gait training, pain-control, and improving activity tolerance, however it may take a while to even get pt to tolerate a full PT session without severe pain and resulting in a multi -day recovery. If pt does not progress as expected, may need to return to referring provider in the future for further assessment. Physical Therapy Plan Frequency and Duration Frequency of Treatment 2x/Week Plan of Care Start Date 01/15/23 Plan of Care End Date 03/17/23 Therapeutic Interventions Therapeutic Interventions Gait Training,Home Exercise Program,Joint Mobilizations, Manual Therapy,Neuromuscular Re-education,Patient/Caregiver Education,Self-Care/Home Management,Soft Tissue Mobilization,Taping, Therapeutic Activities, Therapeutic Exercises Modalities Cold Pack/Ice Massage,Hot Packs Next Visit Focus/Plan Next Note Type Treatment Note Next Visit Plan Strengthening, K-tape trial, edema management, activity tolerance
--- NOTE | 2023-01-15 15:11 | PT.OPPOC ---
Physical, Occupational & Speech Therapy At [facility] Current Diagnoses Pain in left knee (01/15/23) Other abnormalities of gait and mobility (01/15/23) Weakness (01/15/23) Other specified postprocedural states (01/15/23) Visit Care Team Role Provider Type Ernie Tamayo DO Family Provider Physician Primary Care Provider Specialty: Family Practice Address: [address] [place] [address], [id number] Email: [email or web address] Attending Provider Non-Staff Referring Provider Specialty: Medical Address: [facility], [address] [place] [address], [id number] Email: Plan Of Care PT-OP-T Assessment and Plan Start: 01/15/23 14:33 Freq: Status: Active Protocol: Document 01/15/23 12:00 DCW (Rec: 01/15/23 15:10 DCW [id number]) Physical Therapy Assessment Rehab Potential Rehabilitation Potential Fair Evaluation Complexity Number of Personal Factors/Comorbidities 3 or More Number of Body Systems Impaired 4 or More Clinical Presentation at Evaluation Unstable Impairments Impairments Activity Tolerance,Edema, Functional Activities, Functional Mobility,Gait,Pain, Sensation,Soft Tissue Mobility ,Strength,Tone Goals Three Impairment Pt ambulates 241 feet using SPC during a two minute walk test Ceramics Teacher Goal (LTG) Pt to tolerate performing a six minute walk test without requiring a rest break, while ambulating at least 600' without an assistive device to demonstrate improved activity tolerance LTG Duration 03/17/23 Two Impairment Pt unable to complete ascending a full flight of stairs Ceramics Teacher Goal (LTG) Pt to demonstrate ability to ascend and descend a flight of at least 12 steps without requiring a recovery period afterward. LTG Duration 03/17/23 One Impairment Pt cannot tolerate standing longer than 10 minutes without severe pain Ceramics Teacher Goal (LTG) Pt to report ability to help his with chores for one hour without requiring more than 2 hours recovery LTG Duration 03/17/23 Assessment Summary Assessment Pt presents to skilled therapy with severe limitations following left posterior meniscus repair. Pt does display nearly full ROM, measuring at 3?-148?, however is significantly limited in all other areas. Pt unable to stand longer than 5-10 minutes without severe increases in pain, had to take an extended rest break to recover after performing a two minute walk test, and continues to have significant joint effusion and tenderness to palpation. Barriers to rehab include pt's seemingly poorly controlled diabetes, neuropathy, very poor activity tolerance, and difficulty sleeping due to poor pain control. May benefit from skilled therapy focusing on strengthening, gait training, pain-control, and improving activity tolerance, however it may take a while to even get pt to tolerate a full PT session without severe pain and resulting in a multi -day recovery. If pt does not progress as expected, may need to return to referring provider in the future for further assessment. Physical Therapy Plan Frequency and Duration Frequency of Treatment 2x/Week Plan of Care Start Date 01/15/23 Plan of Care End Date 03/17/23 Therapeutic Interventions Therapeutic Interventions Gait Training,Home Exercise Program,Joint Mobilizations, Manual Therapy,Neuromuscular Re-education,Patient/Caregiver Education,Self-Care/Home Management,Soft Tissue Mobilization,Taping, Therapeutic Activities, Therapeutic Exercises Modalities Cold Pack/Ice Massage,Hot Packs Next Visit Focus/Plan Next Note Type Treatment Note Next Visit Plan Strengthening, K-tape trial, edema management, activity tolerance Plan of Care Dates Plan of Care Start Date 01/15/23 Plan of Care End Date 03/17/23 Electronically Signed by: Paresh Mercado, PT 01/15/23 3530 If you are in agreement with this Plan of Care, please return a signed and dated copy. I have reviewed this Plan of Care and certify that the skilled therapy services above are required to meet the patient?s needs. Physician Signature Date Printed Name and Credentials Clinical Instructor Signature Printed Name and Credentials
--- NOTE | 2023-01-18 11:35 | PT-OP ANOTE ---
Pt cancelled tx <24hrs sick, unable to attend.
--- NOTE | 2023-01-22 13:00 | PT.OTN ---
Current Diagnoses Pain in left knee (01/22/23) Other abnormalities of gait and mobility (01/22/23) Weakness (01/22/23) Other specified postprocedural states (01/22/23) Physical Therapy Treatment Note PT-OP-A Visit Information Start: 01/15/23 14:33 Freq: Status: Active Protocol: Document 01/22/23 12:18 SP (Rec: 01/22/23 13:06 SP [id number]) Out-Patient Physical Therapy Visit Information Visit Information Visit Type Treatment Note Visit Start Time 12:18 Visit Stop Time 13:00 Total Visit Minutes 42 Visit Number 2 Number of AUDITING CONTROL CLERK Visits 1 Evaluation Information Evaluation Date 01/15/23 PT-OP-B Current Condition Start: 01/15/23 14:33 Freq: Status: Active Protocol: Document 01/15/23 12:00 DCW (Rec: 01/15/23 14:56 DCW [id number]) Current Condition History of Current Condition Onset Date 10/28/22 Current Complaints Left knee pain s/p meniscus repair History of Current Condition Pt is a 42 year old male presenting to skilled therapy 2.5 months s/p left posterior horn meniscus repair. Pt reports he was told at his follow-up surgical appointment in the beginning of December that he needed another month of bed rest. Reports that this is his third left knee surgery in the past seven years, and that his surgeon told him after this one, he would likely need a TKA at some point in the next year, as he has no cartilage left in his knee. Pt very frustrated, feels like he is currently having more pain and gait restrictions than he had prior to surgery. Still using a SPC or crutches to get around, reports he can't walk or even bend his knee without pain, pain prevents him from sleeping more than 3-4 hours a night. Biggest functional complaint from pt is that he is unable to play with his children, he has a six-year old son and is unable to join him in any activity that involves walking or even standing. Has been compliant with his post-op HEP, but just SLR and knee flexion/heel slides cause extreme pain. Reports that if he stands for an hour to help his with something, he then has to spend the next 2-3 days in bed recovering. Personal Factors Other Personal Factors That May Effect Uncontrolled DM II, Severe Therapy/Recovery neuropathy, HTN, Migraine, Lumbar spondylolysis PT-OP-C Subjective Start: 01/15/23 14:33 Freq: Status: Active Protocol: Document 01/22/23 12:18 SP (Rec: 01/22/23 13:06 SP [id number]) OP-PT Subjective Patient Comments Patient Comments Pt stated had to help son prep yard work (mow/weed) since last tx and shouldn't have. PT-OP-E Functional Tests Start: 01/15/23 14:35 Freq: Status: Active Protocol: Document 01/15/23 12:00 DCW (Rec: 01/15/23 14:56 DCW [id number]) Functional Tests 2 Minute Walk Test Distance 241' Device Used SPC Comments pain 5/10 pre, 8/10 post Timed Up and Go (TUG) Score 15.98 seconds /c SPC Comments Three-trial average (16.59, 16 .13, 15.23) TUG Impairment Rating 60 to <80% Impaired (Score 16- 17) PT-OP-F Manual Assessment Start: 01/15/23 14:33 Freq: Status: Active Protocol: Document 01/15/23 12:00 DCW (Rec: 01/15/23 14:56 DCW [id number]) Manual Assessments Soft Tissue Assessment Soft Tissue Mobility Assessment Tenderness to palpation 3/4: Wincing and withdraw along entire left knee complex, worst and medial joint line PT-OP-G Mobility & Gait Start: 01/15/23 14:33 Freq: Status: Active Protocol: Document 01/15/23 12:00 DCW (Rec: 01/15/23 14:56 DCW [id number]) OP Gait Assessment Gait Gait Assistance Required: Standby Assistance Distance (Feet) 241 Assistive Devices Assistive Device Straight Cane Gait Deviations General Gait Pattern Antalgic,Decreased Stride Length,Decreased Feet Clearance,Lateral Trunk Lean Factors Limiting Gait Function Factors Limiting Gait Function Decreased Activity Tolerance, Decreased Strength,Pain PT-OP-K Range of Motion Start: 01/15/23 14:33 Freq: Status: Active Protocol: Document 01/15/23 12:00 DCW (Rec: 01/15/23 14:56 DCW [id number]) Knee Goniometric Range of Motion Knee Left Knee ROM WFL Yes Patient Position Supine Flexion Active (degrees) 148 Extension Active (degrees) 3 Comments No extension lag PT-OP-L Special Tests Start: 01/15/23 14:56 Freq: Status: Active Protocol: Document 01/15/23 12:00 DCW (Rec: 01/15/23 14:57 DCW [id number]) Special Tests Knee Special Tests Patella Tap Test Results Positive left PT-OP-M Strength Start: 01/15/23 14:33 Freq: Status: Active Protocol: Document 01/15/23 12:00 DCW (Rec: 01/15/23 14:56 DCW [id number]) Knee Strength Knee Manual Muscle Testing Left Flexion (S2) 3+ Fair+ Extension (L3) 3+ Fair+ Comments Able to support himself on left leg, but unable to tolerate any resistance through knee secondary to severe pain PT-OP-Q Treatments Start: 01/15/23 14:33 Freq: Status: Active Protocol: Document 01/22/23 12:18 SP (Rec: 01/22/23 13:06 SP [id number]) Gym Equipment Shuttle Recovery Bilateral Squats Details noted unsteady musculature, cued not lock at top/soft knee extension Resistance 50# (old bands) Shuttle Recovery Platform Stable Reps/Time 2x10 good knees // Therapeutic Exercises Supine Exercises bridge Supine Exercise Name self HEP review Reps/Minutes x5 reps Comments cued TA and slow lift/lower, core weakness post op HEP review Supine Exercise Name QS, Heel slide, SAQ, SLR Side left Reps/Minutes 10 reps each, SLR 2SH. Comments cued TA/ opp LE bent/foot table: slow movement, good quad contraction, Standing Exercises heel raises Standing Exercise Name initiated in PT- added to HEP Side bilateral Equipment Used B UE on rail support Reps/Minutes x10 Comments good knee stability and raise/ lower wall slide Standing Exercise Name reviewed reported physician exercise- hold Equipment Used back to wall Reps/Minutes x3 reps Comments pt states heel to wall, cued modified ft out front, mini squat- unsteady Other Exercises 4 way hip (on table) Other Exercise Name previous/ past HEP reviewed: SLR, ABD, ext, Adduction Side left Resistance AROM Equipment Used HEP Reps/Minutes x10 reps each direction Comments cued slow, TA painfree movement, no LB arch Manual Therapy Treatment Taping ktaping Body Location L knee Treatment Focus patella stabilization Comments C tib tuberosity medial/ lateral to superior patella. PT-OP-R Modalities Start: 01/15/23 14:33 Freq: Status: Active Protocol: Document 01/22/23 12:18 SP (Rec: 01/22/23 13:06 SP [id number]) Hot Pack/Cold Pack Treatment Cold Pack Location L knee (anterior/posterior knee) Patient Position Supine Treatment Duration (minutes) 6 Patient Tolerance Good Comments stated pretty cold, numb after 6 min- removed PT-OP-T Assessment and Plan Start: 01/15/23 14:33 Freq: Status: Active Protocol: Document 01/22/23 12:18 SP (Rec: 01/22/23 13:06 SP [id number]) Physical Therapy Assessment Goals Three Impairment Pt ambulates 241 feet using SPC during a two minute walk test Assistant Case Manager Goal (LTG) Pt to tolerate performing a six minute walk test without requiring a rest break, while ambulating at least 600' without an assistive device to demonstrate improved activity tolerance LTG Duration 03/17/23 Two Impairment Pt unable to complete ascending a full flight of stairs Assistant Case Manager Goal (LTG) Pt to demonstrate ability to ascend and descend a flight of at least 12 steps without requiring a recovery period afterward. LTG Duration 03/17/23 One Impairment Pt cannot tolerate standing longer than 10 minutes without severe pain Assistant Case Manager Goal (LTG) Pt to report ability to help his with chores for one hour without requiring more than 2 hours recovery LTG Duration 03/17/23 Assessment Summary Assessment Pt's gait is unsteady L knee during midstance and worse with distance. GOod stability during initiated calf raises UE supported on rail. Good scar and patella mobility- 1 min. Tx focused on HEP review. Discussed bring in physician HOs for HEP, told hold wall slides for now due to quad tiring quickly and at risk for buckling, noted heavy RUE WB on SPC. Pt good effort laying down 4 way SLR for home tires up to 8-10 reps. Pt unable to complete full bridge due to core and hip weakness w/ cues for PPT/ TA facilitation. Discussed walking with SPC in RUE to pattern with LLE and states sometimes feels not as supportive but does go back and forth which UE able. Physical Therapy Plan Frequency and Duration Frequency of Treatment 2x/Week Plan of Care Start Date 01/15/23 Plan of Care End Date 03/17/23 Therapeutic Interventions Therapeutic Interventions Gait Training,Home Exercise Program,Joint Mobilizations, Manual Therapy,Neuromuscular Re-education,Patient/Caregiver Education,Self-Care/Home Management,Soft Tissue Mobilization,Taping, Therapeutic Activities, Therapeutic Exercises Modalities Cold Pack/Ice Massage,Hot Packs Next Visit Focus/Plan Next Note Type Treatment Note Next Visit Plan REview HEP. Progress quad, hs, hip abd, glut strengthening. Strengthening, Continue K-tape , edema management, activity tolerance.
--- NOTE | 2023-01-25 12:44 | PT.OTN ---
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 Pt reports he was told at his follow-up surgical appointment in the beginning of December that he needed another month of bed rest. Reports that this is his third left knee surgery in the past seven years, and that his surgeon told him after this one, he would likely need a TKA at some point in the next year, as he has no cartilage left in his knee. Pt very frustrated, feels like he is currently having more pain and gait restrictions than he had prior to surgery. Still using a SPC or crutches to get around, reports he can't walk or even bend his knee without pain, pain prevents him from sleeping more than 3-4 hours a night. Biggest functional complaint from pt is that he is unable to play with his children, he has a six-year old son and is unable to join him in any activity that involves walking or even standing. Has been compliant with his post-op HEP, but just SLR and knee flexion/heel slides cause extreme pain. Reports that if he stands for an hour to help his with something, he then has to spend the next 2-3 days in bed recovering. Personal Factors Other Personal Factors That May Effect Uncontrolled DM II, Severe Therapy/Recovery neuropathy, HTN, Migraine, Lumbar spondylolysis PT-OP-C Subjective Start: 01/15/23 14:33 Freq: Status: Active Protocol: Document 01/25/23 12:00 DCW (Rec: 01/25/23 12:43 DCW [id number]) OP-PT Subjective Patient Comments Patient Comments Pt reports his leg has been out of commission since his last visit, feels he had too much weight/resistance for the exercises. Did feel K-tape was beneficial. PT-OP-E Functional Tests Start: 01/15/23 14:35 Freq: Status: Active Protocol: Document 01/15/23 12:00 DCW (Rec: 01/15/23 14:56 DCW [id number]) Functional Tests 2 Minute Walk Test Distance 241' Device Used SPC Comments pain 5/10 pre, 8/10 post Timed Up and Go (TUG) Score 15.98 seconds /c SPC Comments Three-trial average (16.59, 16 .13, 15.23) TUG Impairment Rating 60 to <80% Impaired (Score 16- 17) PT-OP-F Manual Assessment Start: 01/15/23 14:33 Freq: Status: Active Protocol: Document 01/15/23 12:00 DCW (Rec: 01/15/23 14:56 DCW [id number]) Manual Assessments Soft Tissue Assessment Soft Tissue Mobility Assessment Tenderness to palpation 3/4: Wincing and withdraw along entire left knee complex, worst and medial joint line PT-OP-G Mobility & Gait Start: 01/15/23 14:33 Freq: Status: Active Protocol: Document 01/15/23 12:00 DCW (Rec: 01/15/23 14:56 DCW [id number]) OP Gait Assessment Gait Gait Assistance Required: Standby Assistance Distance (Feet) 241 Assistive Devices Assistive Device Straight Cane Gait Deviations General Gait Pattern Antalgic,Decreased Stride Length,Decreased Feet Clearance,Lateral Trunk Lean Factors Limiting Gait Function Factors Limiting Gait Function Decreased Activity Tolerance, Decreased Strength,Pain PT-OP-K Range of Motion Start: 01/15/23 14:33 Freq: Status: Active Protocol: Document 01/15/23 12:00 DCW (Rec: 01/15/23 14:56 DCW [id number]) Knee Goniometric Range of Motion Knee Left Knee ROM WFL Yes Patient Position Supine Flexion Active (degrees) 148 Extension Active (degrees) 3 Comments No extension lag PT-OP-L Special Tests Start: 01/15/23 14:56 Freq: Status: Active Protocol: Document 01/15/23 12:00 DCW (Rec: 01/15/23 14:57 DCW [id number]) Special Tests Knee Special Tests Patella Tap Test Results Positive left PT-OP-M Strength Start: 01/15/23 14:33 Freq: Status: Active Protocol: Document 01/15/23 12:00 DCW (Rec: 01/15/23 14:56 DCW [id number]) Knee Strength Knee Manual Muscle Testing Left Flexion (S2) 3+ Fair+ Extension (L3) 3+ Fair+ Comments Able to support himself on left leg, but unable to tolerate any resistance through knee secondary to severe pain PT-OP-Q Treatments Start: 01/15/23 14:33 Freq: Status: Active Protocol: Document 01/25/23 12:00 DCW (Rec: 01/25/23 12:43 DCW [id number]) Cardio Equipment Recumbent Bicycle Duration (Minutes) 6 Resistance 4 Seat Position 8 Gym Equipment Shuttle Recovery Bilateral Squats Details noted unsteady musculature, cued not lock at top/soft knee extension Resistance 50# (1 new band) Shuttle Recovery Platform Stable Reps/Time 2x10 good knees // Therapeutic Exercises Standing Exercises Hip Extension Standing Exercise Name Hip Extension Side bilateral Equipment Used // bars Hip abduction Standing Exercise Name Hip Abduction Side bilateral Equipment Used // bars Manual Therapy Treatment Joint Mobilizations Patella Mobs Joint L Patella Direction Inf/Sup Grade II Body Position Hooklying Taping ktaping Body Location L knee Treatment Focus Edema management Comments 2 fans - superior->inferior PT-OP-R Modalities Start: 01/15/23 14:33 Freq: Status: Active Protocol: Document 01/22/23 12:18 SP (Rec: 01/22/23 13:06 SP [id number]) Hot Pack/Cold Pack Treatment Cold Pack Location L knee (anterior/posterior knee) Patient Position Supine Treatment Duration (minutes) 6 Patient Tolerance Good Comments stated pretty cold, numb after 6 min- removed PT-OP-T Assessment and Plan Start: 01/15/23 14:33 Freq: Status: Active Protocol: Document 01/25/23 12:00 DCW (Rec: 01/25/23 12:[address] 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 LTG Duration 03/17/23 One Impairment Pt cannot tolerate standing longer than 10 minutes without severe pain Longterm Goal (LTG) Pt to report ability to help his with chores for one hour without requiring more than 2 hours recovery LTG Duration 03/17/23 Assessment Summary Assessment Significantly decreased activity and resistance in therapy today due to pt response to last session, tolerated better, trial of edema fan k-taping over left knee, asses response next visit. Physical Therapy Plan Frequency and Duration Frequency of Treatment 2x/Week Plan of Care Start Date 01/15/23 Plan of Care End Date 03/17/23 Therapeutic Interventions Therapeutic Interventions Gait Training,Home Exercise Program,Joint Mobilizations, Manual Therapy,Neuromuscular Re-education,Patient/Caregiver Education,Self-Care/Home Management,Soft Tissue Mobilization,Taping, Therapeutic Activities, Therapeutic Exercises Modalities Cold Pack/Ice Massage,Hot Packs Next Visit Focus/Plan Next Note Type Treatment Note Next Visit Plan Review HEP. Progress quad, hs, hip abd, glut strengthening. Strengthening, Continue K-tape , edema management, activity tolerance.
--- NOTE | 2023-01-29 09:44 | PT-OP ANOTE ---
Pt cancelled appt <24 hrs, having nerve pain intolerant to come to PT today.
--- NOTE | 2023-04-12 16:44 | PT.OPDS ---
Current Diagnoses Pain in left knee (01/25/23) Other abnormalities of gait and mobility (01/25/23) Weakness (01/25/23) Other specified postprocedural states (01/25/23) Visit Care Team Role Provider Type Ernie Tamayo DO Family Provider Physician Primary Care Provider Specialty: Family Practice Address: [address] [place] [address], [id number] Email: [email or web address] Attending Provider Non-Staff Referring Provider Specialty: Medical Address: [facility], [address] [place] [address], [id number] Email: Visit Number Visit Number 3 Discharge Summary PT-OP-B Current Condition Start: 01/15/23 14:33 Freq: Status: Active Protocol: Document 01/15/23 12:00 DCW (Rec: 01/15/23 14:56 DCW [id number]) Current Condition History of Current Condition Onset Date 10/28/22 Current Complaints Left knee pain s/p meniscus repair History of Current Condition Pt is a 42 year old male presenting to skilled therapy 2.5 months s/p left posterior horn meniscus repair. Pt reports he was told at his follow-up surgical appointment in the beginning of December that he needed another month of bed rest. Reports that this is his third left knee surgery in the past seven years, and that his surgeon told him after this one, he would likely need a TKA at some point in the next year, as he has no cartilage left in his knee. Pt very frustrated, feels like he is currently having more pain and gait restrictions than he had prior to surgery. Still using a SPC or crutches to get around, reports he can't walk or even bend his knee without pain, pain prevents him from sleeping more than 3-4 hours a night. Biggest functional complaint from pt is that he is unable to play with his children, he has a six-year old son and is unable to join him in any activity that involves walking or even standing. Has been compliant with his post-op HEP, but just SLR and knee flexion/heel slides cause extreme pain. Reports that if he stands for an hour to help his with something, he then has to spend the next 2-3 days in bed recovering. Personal Factors Other Personal Factors That May Effect Uncontrolled DM II, Severe Therapy/Recovery neuropathy, HTN, Migraine, Lumbar spondylolysis PT-OP-C Subjective Start: 01/15/23 14:33 Freq: Status: Active Protocol: Document 01/25/23 12:00 DCW (Rec: 01/25/23 12:43 DCW [id number]) OP-PT Subjective Patient Comments Patient Comments Pt reports his leg has been out of commission since his last visit, feels he had too much weight/resistance for the exercises. Did feel K-tape was beneficial. PT-OP-E Functional Tests Start: 01/15/23 14:35 Freq: Status: Active Protocol: Document 01/15/23 12:00 DCW (Rec: 01/15/23 14:56 DCW [id number]) Functional Tests 2 Minute Walk Test Distance 241' Device Used SPC Comments pain 5/10 pre, 8/10 post Timed Up and Go (TUG) Score 15.98 seconds /c SPC Comments Three-trial average (16.59, 16 .13, 15.23) TUG Impairment Rating 60 to <80% Impaired (Score 16- 17) PT-OP-F Manual Assessment Start: 01/15/23 14:33 Freq: Status: Active Protocol: Document 01/15/23 12:00 DCW (Rec: 01/15/23 14:56 DCW [id number]) Manual Assessments Soft Tissue Assessment Soft Tissue Mobility Assessment Tenderness to palpation 3/4: Wincing and withdraw along entire left knee complex, worst and medial joint line PT-OP-G Mobility & Gait Start: 01/15/23 14:33 Freq: Status: Active Protocol: Document 01/15/23 12:00 DCW (Rec: 01/15/23 14:56 DCW [id number]) OP Gait Assessment Gait Gait Assistance Required: Standby Assistance Distance (Feet) 241 Assistive Devices Assistive Device Straight Cane Gait Deviations General Gait Pattern Antalgic,Decreased Stride Length,Decreased Feet Clearance,Lateral Trunk Lean Factors Limiting Gait Function Factors Limiting Gait Function Decreased Activity Tolerance, Decreased Strength,Pain PT-OP-K Range of Motion Start: 01/15/23 14:33 Freq: Status: Active Protocol: Document 01/15/23 12:00 DCW (Rec: 01/15/23 14:56 DCW [id number]) Knee Goniometric Range of Motion Knee Left Knee ROM WFL Yes Patient Position Supine Flexion Active (degrees) 148 Extension Active (degrees) 3 Comments No extension lag PT-OP-L Special Tests Start: 01/15/23 14:56 Freq: Status: Active Protocol: Document 01/15/23 12:00 DCW (Rec: 01/15/23 14:57 DCW [id number]) Special Tests Knee Special Tests Patella Tap Test Results Positive left PT-OP-M Strength Start: 01/15/23 14:33 Freq: Status: Active Protocol: Document 01/15/23 12:00 DCW (Rec: 01/15/23 14:56 DCW [id number]) Knee Strength Knee Manual Muscle Testing Left Flexion (S2) 3+ Fair+ Extension (L3) 3+ Fair+ Comments Able to support himself on left leg, but unable to tolerate any resistance through knee secondary to severe pain PT-OP-T Assessment and Plan Start: 01/15/23 14:33 Freq: Status: Active Protocol: Document 04/12/23 16:43 DCW (Rec: 04/12/23 16:44 DCW [id number]) Physical Therapy Assessment Assessment Summary Assessment Pt canceled/no-showed final three scheduled visits, has now not been seen in more than two months, POC has now . Pt will require a new referral in order to return to skilled therapy. Pt will be discharged from PT at this time. Physical Therapy Plan Discharge Physical Therapy Discharge Reasons No Longer Attending PT
== END 2023-04-13 12:18 | disposition home or self-care (01) ==
LOC: PHYS 12:00
PROVIDERS: Family Provider Family Medicine; PCP Family Medicine; Referring Provider Physician Assistant Surgical; Visit Provider Physician Assistant Surgical
DX: Z98.890 Other specified postprocedural states (principal); M25.562 Pain in left knee; R26.89 Other abnormalities of gait and mobility; R53.1 Weakness
CPT/HCPCS: 97110; 97140; 97163

== ENCOUNTER → 2023-04-16 08:36 | Outpatient (CLI) | payer OTHER, MEDICAID, SELFPAY ==
[2023-04-16 09:18] LABS: Alanine Aminotransferase 24 IU/L (<50); Albumin 3.8 g/dL (3.5-5.0); Albumin Globulin Ratio 1.2 (1.0-2.8); Alkaline Phosphatase 98 U/L (38-126); Aspartate Aminotransferase 20 IU/L (17-59); Bilirubin Total 0.3 mg/dL (0.2-1.3); Blood Urea Nitrogen 9 mg/dL (9-20); Calcium 8.9 mg/dL (8.4-10.2); Carbon Dioxide 30 mmol/L (22-32); Chloride 102 mmol/L (98-107); Cholesterol 241 mg/dL (140-199); Estimated Glomerular Filt Rate > 60 mL/min (>60); Globulin 3.3 g/dL (1.7-4.1); Glucose 292 mg/dL (70-100); HDL Cholesterol 32 mg/dL (40-60); HEMOLYSIS < 15 (0-50); LDL Cholesterol Calculated 149 mg/dL (<100); Potassium 3.7 mmol/L (3.4-5.1); Sodium 138 mmol/L (137-145); Total Protein 7.1 g/dL (6.3-8.2); Triglycerides 302 mg/dL (35-150)
--- NOTE | 2023-04-16 10:14 | DIAB.INIT ---
Initial Diabetes Education Assessment Name: Josh Hidalgo Date: 04/16/23 Time: 1005-11a Dx: Type II Diabetes Provider: Roni Moreno presents for initial Dm visit. PMH of DM x 6 years. Endorses FHof DM with mother, whom passed from hypoglycemia due to taking excessive insulin. Interested in CGM. Last hgA1c of 13.3% in 06/2022. Just completed new labs, HgA1c pending. Does not want a CGM on abdomen. Interested in FSL2. Reports checking Bg TID with all elevated. 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 barriers to BG management due to work include tasting foods and busy kitchen schedule. Self-Monitoring Blood Glucose: Reports checking TID: FBG, pre dinner and Hs. States FBG often in the 170s, pre dinner 280-300mg/dl and HS often in 300s mg/dl. Diabetes Medications: Glargine 50u Lispro 10-20u TID Victoza 1.2mg Metformin 1000mg BID Dapagliflozin 10mg Pertinent Labs: Hemoglobin A1c Cancelled 04/16/23 08:43 Triglycerides 302 mg/dL (35-150) H 04/16/23 08:43 HDL Cholesterol 32 mg/dL (40-60) L 04/16/23 08:43 Past Medical History: (Last Reviewed 02/22/23 @ 11:13 by Ernie Tamayo, ) Acquired spondylolysis of lumbar spine Alopecia (Unknown) Anxiety (Unknown) Arthritis (Unknown) lt. knee Bilateral foot pain Chronic pain Dental infection Diabetes (2016) Diabetic neuropathy Fractures (1998) lt. ankle GERD (gastroesophageal reflux disease) (Unknown) Hemorrhoids (Unknown) Hyperlipemia (Unknown) Hypertension (Unknown) Left knee pain Migraines (Unknown) Obstructive sleep apnea (~03/2015) Intervention: This participant was very receptive. Provided appropriate educational handouts. Discussed the following topics: Reviewed different CGM options Discussed meter vs CGM accuracy and when to confirm results with meter Instructed Josh on placement and use of CGM. He self placed device. Reviewed BG goals and alarms Created SMART goals for patient self-care and success. Goals: wear FSL2 14 days Follow-up: [facility] follow-up recommended with RD/CAN either at or other DM program. RD will coordinate with PCP office for Shakir WARD for coverage of CGM. Kenia Chicas RDN, [facility] Certified Diabetes Care and Database Technician P: [phone] Thank you for this referral
[2023-04-17 03:36] LABS: Labcorp Hemoglobin (Hb) A1c 11.9 % (4.8-5.6)
== END ==
PROVIDERS: Absent Provider Family Medicine; Family Provider Family Medicine; PCP Family Medicine; Referring Provider Family Medicine; Visit Provider Family Medicine
DX: E11.9 Type 2 diabetes mellitus without complications (principal); I10 Essential (primary) hypertension; E78.2 Mixed hyperlipidemia; Z71.3 Dietary counseling and surveillance; Z79.4 Long term (current) use of insulin; Z79.84 Long term (current) use of oral hypoglycemic drugs
CPT/HCPCS: 80053; 80061; 82043; 82570; 83036; G0108

== ENCOUNTER → 2024-03-27 13:07 | Outpatient (CLI) | payer OTHER, MEDICAID, SELFPAY ==
[2024-03-27 13:50] LABS: HDL Cholesterol 44 mg/dL (40-60); Triglycerides 465 mg/dL (35-150)
[2024-03-27 13:56] LABS: Cholesterol 322 mg/dL (140-199)
== END ==
PROVIDERS: Family Provider Family Medicine; PCP Family Medicine; Referring Provider Family Medicine; Visit Provider Family Medicine
DX: E11.9 Type 2 diabetes mellitus without complications (principal); E78.5 Hyperlipidemia, unspecified; I10 Essential (primary) hypertension
CPT/HCPCS: 36415; 80061

== ENCOUNTER → 2024-08-17 09:33 | Outpatient (CLI) | payer OTHER, MEDICAID, SELFPAY ==
[2024-08-17 15:08] LABS: Creatinine Urine Random 56.05 mg/dL
[2024-08-17 16:17] LABS: Microalbumin Urine Random 22.9 mg/dL (0-1.6)
== END ==
PROVIDERS: Family Provider Family Medicine; PCP Family Medicine; Visit Provider Family Medicine
DX: E11.9 Type 2 diabetes mellitus without complications (principal)
CPT/HCPCS: 82043; 82570

== ENCOUNTER → 2024-11-03 10:48 | Outpatient (CLI) | payer OTHER, SELFPAY ==
--- NOTE | 2024-11-09 17:10 | DIAB.MNT ---
Initial Diabetes Medical Nutrition Therapy Assessment Name: Josh Hidalgo Date: 11/03/24 Time: 3615-9428 Dx: Type II Diabetes Provider: Roni Moreno presents for DM visit, last RD visit in April 2023. Reports significantly worsening neuropathy in his LE, especially at night starting around 1130p. Reports cannot feel his feet at all. States he has a difficulty time sleeping due to the discomfort and can hardly walk at times. Uses a cane to walk. Feels this impacts his quality of life, ability to interact with his children, and his appetite. Does not like protein shakes usually, will eat carnation shake (45g CHO with milk) Will often drink milk when no appetite, which may be contributing to elevated BG considering reported 1/2-1 gallon consumption per day. Wears dentures but often omits them due to difficulty with denture glue. Diet recall: 2p: soft foods like ramen with egg OR raviolis one can OR sausages OR smoked oysters 530p: nothing OR chx with 1c rice and veggies (green beans or corn or peas x 1/4 can) 2-3 gallong water 0.5-1 gallon milk sf tea few sips of reg soda a few times per week Anthropometrics: Ht: 6'2 Wt: 216# Physical Activity: no program Self-Monitoring Blood Glucose: Finger kxypoe2e per day: FBG, pre lunch, pre dinner, HS. None for review today but reports 270s FBG, 300s pre lunch, 280s pre dinner, 350s HS. Diabetes Medications: 40u glargine BID 10-20u Lispro 3-4x per day 1.8mg Victoza 10mg Farxiga 1000mg Metformin BID Pertinent Labs: HGA1c: 11.9% 04/2023 12.1% 08/2024 Past Medical History: (Last Reviewed 10/02/24 @ 14:27 by Ernie Tamayo DO) Acquired spondylolysis of lumbar spine Acute maxillary sinusitis Alopecia (Unknown) Anxiety (Unknown) Arthritis (Unknown) lt. knee Bilateral foot pain Chronic pain Dental infection Diabetes (2016) Diabetic neuropathy Fractures (1998) lt. ankle GERD (gastroesophageal reflux disease) (Unknown) Hemorrhoids (Unknown) Hyperlipemia (Unknown) Hypertension (Unknown) Left knee pain Migraines (Unknown) Obstructive sleep apnea (~03/2015) Sinus tachycardia Type 2 diabetes mellitus Nutrition Rx: Carbohydrates: Meal:45g Snack:15-30g Nutrition Diagnosis: - Excessive CHO intake r/t milk consumption and nutrition knowledge deficit aeb diet recall and pt report - new - Nutrition knowledge deficit r/t limited nutrition/DM education aeb pt report- new Intervention: This participant was very receptive. Provided appropriate educational handouts. Discussed the following topics: Completed intake assessment. Discussed barriers to care. Recommended servings for carbohydrates at meals and snacks Brainstormed appropriate meal/snack ideas based on food preferences Discussed how DM has impacted his overall health and quality of life Reviewed insulin pump options and pros/cons and reviewed sample pumps as examples Rule of 15 for low tx Provided CGM sample Reviewed CGM use and equipment Discussed when to check blood sugars using finger stick Reviewed high and low blood sugar signs/symptoms and treatment options Provided education for self-administration of CGM placement Educated patient on alarm settings Discussed how to remove and dispose of equipment Created SMART goals for patient self-care and success. Goals: Wear CGM x 10.5 days Try carnation shake with milk as meal replacement Keep milk to 12-16oz per sitting without a meal Follow-up: [facility] follow-up in 2-3 weeks. Discussed insulin pump therapy with provider and moved forward with Medtronic 780G pump acquisition. Kenia Chicas RDN, [facility] Certified Diabetes Care and [employer] P: [phone] Thank you for this referral
== END ==
PROVIDERS: Family Provider Family Medicine; PCP Family Medicine; Referring Provider Family Medicine
DX: E11.40 Type 2 diabetes mellitus with diabetic neuropathy, unspecified (principal); Z79.84 Long term (current) use of oral hypoglycemic drugs; Z79.4 Long term (current) use of insulin; Z79.85 Long-term (current) use of injectable non-insulin antidiabetic drugs; Z71.3 Dietary counseling and surveillance
CPT/HCPCS: 97802

== ENCOUNTER 2024-12-13 09:08 | Emergency (ER) | payer OTHER, SELFPAY ==
[2024-12-13 09:16] VITALS: BP 171/109; PULSE 110; RESP 16; TEMP 36.7; O2SAT 97; BMI 27.6
--- NOTE | 2024-12-13 09:18 | DI.RAD.S_ITS ---
PROCEDURE: XR HAND RT MIN 3V INDICATIONS: fall, swelling TECHNIQUE: 3 views of the hand(s) acquired. COMPARISON: None. FINDINGS: Acute, minimally displaced, and comminuted 4th metacarpal base fracture with likely intra-articular extension. Possible minimally displaced fracture of the hamate at the 4th CMC joint. No other fracture or dislocation. The joint spaces are preserved. IMPRESSION: Acute, minimally displaced and comminuted 4th metacarpal base fracture with intra-articular extension. Dictated by: Jono Heath M.D. on 12/13/2024 at 9:59 Approved by: Jono Heath M.D. on 12/13/2024 at 10:02
--- NOTE | 2024-12-13 09:18 | DI.RAD.S_ITS ---
PROCEDURE: XR WRIST RT MIN 3V INDICATIONS: fall, swelling TECHNIQUE: 4 views of the wrist were acquired. COMPARISON: None. FINDINGS: Acute, comminuted 4th metacarpal base fracture. Possible acute, minimally displaced hamate fracture along the 4th CMC articulation. No other acute fracture or dislocation. Soft tissue edema along the dorsal aspect of the wrist. The joint spaces are otherwise preserved. The scapholunate interval is preserved. No carpal bone sclerosis. IMPRESSION: Acute, comminuted 4th metacarpal base and possible, minimally displaced hamate fracture. Dictated by: Jono Heath M.D. on 12/13/2024 at 10:02 Approved by: Jono Heath M.D. on 12/13/2024 at 10:03
--- NOTE | 2024-12-13 09:27 | ED.FALL ---
HPI - Fall General Chief Complaint: Fall Stated Complaint: poss R hand fracture, swelling Time Seen by Provider: 12/13/24 09:16 History of Present Illness HPI Narrative: 44-year-old man with right hand pain after a ground level fall 2 days ago. Says he fell forward while holding onto something and believes that he essentially punched the ground. He has had has been swollen and painful. Related Data Home Medications Medication Instructions Recorded Confirmed ivabradine 5 mg tablet (Corlanor) 5 mg PO BID 03/27/24 10/02/24 metoprolol succinate 25 mg 50 mg PO .QHS 03/27/24 10/02/24 tablet,extended release 24 hr Previous Rx's Medication Instructions Recorded azelastine 137 mcg (0.1 %) nasal 1 spray intranasal BID ##1 07/23/20 spray aluminum chloride 20 % topical 1 applic topical QWEEK PRN 06/18/21 solution (Drysol) hyperhidrosis #60 mL clotrimazole-betamethasone 1 1 applic topical BID #15 grams 06/18/21 %-0.05 % topical cream blood-glucose meter #1 ea 11/11/21 insulin lispro 100 unit/mL 10 unit (0.1 mL) SUBCUT QAC #15 mL 05/19/22 subcutaneous pen (Humalog KwikPen (U-100) Insulin) potassium chloride 10 mEq 10 meq PO DAILY #90 tabs 05/27/22 tablet,extended release(part/cryst) ketoconazole 2 % shampoo 1 applic topical Q7DAYS #120 mL 08/13/22 sertraline 100 mg tablet 100 mg PO QDAY #90 tabs 12/14/22 metformin 1,000 mg tablet See Rx Instructions .Route 04/08/23 .COMPLEX #180 tabs omeprazole 20 mg tablet,delayed 20 mg PO DAILY #90 tabs 04/20/23 release blood-glucose meter,continuous #1 ea 04/29/23 blood-glucose transmitter #1 ea 04/29/23 Lancets #1 ea 08/10/23 pen needle, diabetic 32 gauge x See Rx Instructions .Route 08/13/23 (TRUEplus Pen Needle) .COMPLEX #100 ea naratriptan 2.5 mg tablet 2.5 mg PO .COMPLEX #12 tabs 08/19/23 ondansetron 8 mg disintegrating See Rx Instructions .Route 10/07/23 tablet .COMPLEX #20 tabs albuterol sulfate 90 mcg/actuation 90 mcg inhalation QID PRN 02/07/24 aerosol inhaler (Ventolin HFA) shortness of breath or wheezing #1 inh fluticasone propionate 44 See Rx Instructions .Route 03/01/24 mcg/actuation HFA aerosol inhaler .COMPLEX #10.6 grams atorvastatin 80 mg tablet See Rx Instructions .Route 04/06/24 .COMPLEX #90 tabs furosemide 20 mg tablet (Lasix) 20 mg PO DAILY 90 days #90 tabs 07/20/24 lisinopril 20 See Rx Instructions .Route 07/20/24 mg-hydrochlorothiazide 12.5 mg .COMPLEX #90 tabs tablet zonisamide 100 mg capsule 200 mg (2 x 100 mg) PO DAILY #180 07/20/24 caps cyclobenzaprine 10 mg tablet 10 mg PO BID PRN muscle spasm #180 08/07/24 tabs lidocaine 5 % topical patch 1 patch topical DAILY #30 ea 08/11/24 lidocaine HCl 2 % mucosal jelly 1 applic topical Q6HP PRN pain #30 08/11/24 mL dapagliflozin propanediol 10 mg 10 mg PO DAILY #90 tabs 08/14/24 tablet Victoza 2-Aniceto 0.6 mg/0.1 mL (18 1.8 mg (0.3 mL) SUBCUT DAILY #6 mL 10/02/24 mg/3 mL) subcutaneous pen injector (liraglutide) pregabalin 50 mg capsule (Lyrica) 50 mg PO TID #90 caps 10/02/24 insulin glargine-yfgn 100 unit/mL 40 unit (0.4 mL) SUBCUT BID #15 mL 10/03/24 (3 mL) subcutaneous pen blood sugar diagnostic (Blood #100 ea 11/20/24 Glucose Test strips) oxycodone-acetaminophen 10 mg-325 1 tab PO QID PRN pain #120 tabs 12/01/24 mg tablet Allergies Allergy/AdvReac Type Severity Reaction Status Date / Time amoxicillin [AMOXICILLIN] Allergy Unknown HIVES Verified 03/27/24 14:20 Patient History Medical History Sinus tachycardia Type 2 diabetes mellitus Acute maxillary sinusitis Diabetic neuropathy Bilateral foot pain Chronic pain Left knee pain Acquired spondylolysis of lumbar spine Dental infection Obstructive sleep apnea (~03/2015) Arthritis (Unknown) Hyperlipemia (Unknown) Fractures (1997) Alopecia (Unknown) Diabetes (2016) Hypertension (Unknown) GERD (gastroesophageal reflux disease) (Unknown) Hemorrhoids (Unknown) Anxiety (Unknown) Migraines (Unknown) Surgical History History of Brianne fundoplication Hx of nasal septoplasty (10/2015) Hx of nasal sinusotomy (10/2015) Hx of arthroscopy of left knee (02/2016) History of fundoplication Family History Brother Age: 48 Kidney transplanted Father Asthma Pleurisy Mother Hypertension GERD (gastroesophageal reflux disease) DJD (degenerative joint disease) Sister Seizure Social History Smoking Status: Current every day smoker Tobacco: How many years used: 24 quit status: considering quitting alcohol intake: current (1 drink per month ) substance use type: does not use Smoking Status: Current every day smoker tobacco type: cigarettes alcohol intake frequency: 0-2 drinks per day Exam Initial Vital Signs Initial Vital Signs: Vital Signs Temperature 98.1 F 12/13/24 09:16 Pulse Rate 110 H 12/13/24 09:16 Respiratory Rate 16 12/13/24 09:16 Blood Pressure 171/109 H 12/13/24 09:16 Pulse Oximetry 97 12/13/24 09:16 Oxygen Delivery Method Room Air 12/13/24 09:16 [facility] Other: Atraumatic Extrem Other: Right hand is diffusely swollen. He has good range of motion of his fingers has baseline neuropathy secondary to diabetes but reports it sensation is intact. Pulses are intact. Procedures Orthopedic Splinting/Casting Injury #1: Upper Extremity Injury Location: wrist and hand Upper Extremity Immobilizer: ulnar gutter Post splinting neuro exam: no change Post splinting vascular exam: intact Placed by: Nursing Course Orders Ordered: ED Orders 12/13/24 11:26 Ct Wrist right without con Stat Discontinued Medications Oxycodone/Acetaminophen (Oxycodone/Acetaminophen 5/325 Tablet) 1 tab PO NOW ONE Stop: 12/13/24 11:17 Last Admin: 12/13/24 11:24 Dose: 1 tab Documented By: MARKO Vital Signs Vital signs: Vital Signs - 8 hr 12/13/24 09:16 Temperature 98.1 F Pulse Rate 110 H Respiratory Rate 16 Blood Pressure 171/109 H Pulse Oximetry 97 Oxygen Delivery Method Room Air MDM - Fall Imaging Data Extremity x-ray #1: My Impression: Proximal 4th metacarpal fracture Radiologist's Impression: Patient: Josh Hidalgo MR#: [id number] : 1980 Acct:[id number] Age/Sex: 44 / M Date of Service: 12/13/24 Loc: ED Accession Number: [id number] Procedure: XR hand RT min 3V Ordering Provider: Anurag Cespedes MD PROCEDURE: XR HAND RT MIN 3V INDICATIONS: fall, swelling TECHNIQUE: 3 views of the hand(s) acquired. COMPARISON: None. FINDINGS: Acute, minimally displaced, and comminuted 4th metacarpal base fracture with likely intra-articular extension. Possible minimally displaced fracture of the hamate at the 4th CMC joint. No other fracture or dislocation. The joint spaces are preserved. IMPRESSION: Acute, minimally displaced and comminuted 4th metacarpal base fracture with intra-articular extension. Dictated by: Jono Heath M.D. on 12/13/2024 at 9:59 Approved by: Jono Heath M.D. on 12/13/2024 at 10:02 Extremity x-ray #2: Radiologist's Impression: Patient: Josh Hidalgo MR#: [id number] : 1980 Acct:[id number] Age/Sex: 44 / M Date of Service: 12/13/24 Loc: ED Accession Number: [id number] Procedure: XR wrist RT min 3V Ordering Provider: Anurag Cespedes MD PROCEDURE: XR WRIST RT MIN 3V INDICATIONS: fall, swelling TECHNIQUE: 4 views of the wrist were acquired. COMPARISON: None. FINDINGS: Acute, comminuted 4th metacarpal base fracture. Possible acute, minimally displaced hamate fracture along the 4th CMC articulation. No other acute fracture or dislocation. Soft tissue edema along the dorsal aspect of the wrist. The joint spaces are otherwise preserved. The scapholunate interval is preserved. No carpal bone sclerosis. IMPRESSION: Acute, comminuted 4th metacarpal base and possible, minimally displaced hamate fracture. Dictated by: Jono Heath M.D. on 12/13/2024 at 10:02 Approved by: Jono Heath M.D. on 12/13/2024 at 10:0 [facility] Narrative Medical decision making narrative: 44-year-old male with closed metacarpal and hamate fractures after a ground level fall. Hand has been splinted and he will follow up with Orthopedics. Case was discussed with Dr. Becca Dash while the patient was present. Discharge Plan Departure Patient Disposition: Home Clinical Impression: Fracture of metacarpal Qualifiers: Encounter type: initial encounter Metacarpal bone: fourth Fracture type: closed Metacarpal location: base Fracture alignment: nondisplaced Laterality: right Qualified Code(s): S62.344A - Nondisplaced fracture of base of fourth metacarpal bone, right hand, initial encounter for closed fracture Closed hamate fracture Qualifiers: Encounter type: initial encounter Hamate bone location: unspecified portion of hamate Fracture alignment: nondisplaced Laterality: right Qualified Code(s): S62.144A - Nondisplaced fracture of body of hamate [unciform] bone, right wrist, initial encounter for closed fracture Activity Restrictions/Additional Instructions: Keep the provided splint on. Keep the splint clean and dry. You may use acetaminophen (Tylenol) 650-1000 mg up to 3 times daily, may also use ibuprofen 600 mg 3 times a day take this with food. Use your previously prescribed oxycodone as needed for more severe pain. Note that each of those has 325 mg of Tylenol in it and keep your total daily dose of Tylenol to no more than 3000 mg. Keep your arm elevated above the level of the heart when able. Follow up with Dr. Arielle Dash as soon as possible call her office to make an appointment. If having severe pain in your hand or arm, new weakness or numbness in your hand or arm recheck in the emergency department. Prescriptions: No Action azelastine 137 mcg (0.1 %) aerosol,spray 1 spray Intranasal BID Qty: 1 12RF (DME) blood-glucose meter Kit See Rx Instructions .ROUTE .MEDSUPPLY Qty: 1 0RF Rx Instructions: Use to test blood glucose BID insulin lispro [Humalog KwikPen Insulin] 100 unit/mL insulin pen 10 unit SUBCUT QAC Qty: 15 10RF Rx Instructions: 10 - 20 units a.c. meals depending on carbohydrate content potassium chloride 10 mEq tablet,ER particles/crystals 10 meq PO DAILY Qty: 90 1RF ketoconazole 2 % shampoo 1 applic Topical Q7DAYS Qty: 120 1RF sertraline 100 mg tablet 100 mg PO QDAY Qty: 90 3RF metformin 1,000 mg tablet See Rx Instructions .ROUTE .COMPLEX Qty: 180 1RF Dose Instruction: Take one tablet by mouth twice daily with food Rx Instructions: Take one tablet by mouth twice daily with food omeprazole 20 mg tablet,delayed release (DR/EC) 20 mg PO DAILY Qty: 90 3RF (DME) blood-glucose meter,continuous Misc See Rx Instructions .Route Qty: 1 0RF Rx Instructions: Use to monitor blood glucose (DME) blood-glucose transmitter Device See Rx Instructions .Route Qty: 1 8RF Rx Instructions: Use to check blood sugar (DME) Lancets 100 LANCETS See Rx Instructions .Route .MEDSUPPLY Qty: 1 5RF Rx Instructions: USE TO TEST BLOOD GLUCOSE LEVELS TWICE DAILY pen needle, diabetic [TRUEplus Pen Needle] 32 gauge x 5/32 needle See Rx Instructions .ROUTE .COMPLEX Qty: 100 8RF Dose Instruction: USE TO INJECT INSULIN 3 TIMES DAILY Rx Instructions: USE TO INJECT INSULIN 3 TIMES DAILY naratriptan 2.5 mg tablet 2.5 mg PO .COMPLEX Qty: 12 11RF Rx Instructions: 1 at onset, may repeat with 1 after 2 hours.; ondansetron 8 mg tablet,disintegrating See Rx Instructions .ROUTE .COMPLEX Qty: 20 4RF Dose Instruction: Dissolve 1 tablet in the mouth twice a day as needed for nausea and vomiting Rx Instructions: Dissolve 1 tablet in the mouth twice a day as needed for nausea and vomiting albuterol sulfate [Ventolin HFA] 90 mcg/actuation HFA aerosol inhaler 90 mcg Inhalation QID PRN (Reason: shortness of breath or wheezing) Qty: 1 2RF Flovent HFA 44 mcg/actuation HFA aerosol inhaler See Rx Instructions .ROUTE .COMPLEX Qty: 10.6 2RF Dose Instruction: inhale 1 puff by mouth and INTO THE LUNGS twice a day ADMINISTER WITH SPACER. Rx Instructions: inhale 1 puff by mouth and INTO THE LUNGS twice a day ADMINISTER WITH SPACER. atorvastatin 80 mg tablet See Rx Instructions .ROUTE .COMPLEX Qty: 90 3RF Dose Instruction: TAKE ONE TABLET BY MOUTH ONE TIME DAILY AT BEDTIME Rx Instructions: TAKE ONE TABLET BY MOUTH ONE TIME DAILY AT BEDTIME furosemide [Lasix] 20 mg tablet 20 mg PO DAILY 90 Days Qty: 90 1RF lisinopril-hydrochlorothiazide 20-12.5 mg tablet See Rx Instructions .ROUTE .COMPLEX Qty: 90 1RF Dose Instruction: Take one tablet by mouth every morning Rx Instructions: Take one tablet by mouth every morning zonisamide 100 mg capsule 200 mg PO DAILY Qty: 180 3RF cyclobenzaprine 10 mg tablet 10 mg PO BID PRN (Reason: muscle spasm) Qty: 180 1RF Rx Instructions: may take twice daily if legs spasming lidocaine 5 % adhesive patch,medicated 1 patch topical DAILY Qty: 30 1RF Rx Instructions: leave on most painful area for up to 12 hrs lidocaine HCl 2 % jelly 1 applic Topical Q6HP PRN (Reason: pain) Qty: 30 11RF dapagliflozin propanediol 10 mg tablet 10 mg PO DAILY Qty: 90 2RF insulin glargine-yfgn 100 unit/mL (3 mL) insulin pen 40 unit SUBCUT BID Qty: 15 5RF Rx Instructions: start injecting 40 units twice a day (DME) Blood Glucose Test Strip See Rx Instructions .Route Qty: 100 4RF Rx Instructions: use to test blood sugars up to 4 times a day with meals oxycodone-acetaminophen 10-325 mg tablet 1 tab PO QID PRN (Reason: pain) Qty: 120 0RF metoprolol succinate 25 mg tablet extended release 24 hr 50 mg PO .QHS Rx Instructions: Take one tablet by mouth every night Corlanor 5 mg tablet 5 mg PO BID Victoza 2-Aniceto 0.6 mg/0.1 mL (18 mg/3 mL) pen injector 1.8 mg SUBCUT DAILY Qty: 6 5RF Rx Instructions: start injecting 1.8 mg pregabalin [Lyrica] 50 mg capsule 50 mg PO TID Qty: 90 2RF aluminum chloride [Drysol] 20 % solution 1 applic TOP QWEEK PRN (Reason: hyperhidrosis) Qty: 60 1RF clotrimazole-betamethasone 1-0.05 % cream 1 applic Topical BID Qty: 15 1RF Referrals: Ernie Tamayo DO [Primary Care Provider] - Arielle Dash MD [Physician] - Stand Alone Forms: Patient Portal/API/Survey
[2024-12-13] MEDS: OXYCODONE/ACETAMINOPHEN 5/325 TABLET 1 TAB PO (11:24)
--- NOTE | 2024-12-13 11:26 | DI.CT.S_ITS ---
PROCEDURE: CT WRIST RIGHT WITHOUT CON INDICATIONS: possible hamate fx TECHNIQUE: Noncontrast 1 mm axial sections acquired through the carpal bones, with coronal and sagittal reformats. COMPARISON: [facility], CR, XR WRIST RT MIN 3V, 12/13/2024, 9:25. [facility], CR, XR HAND RT MIN 3V, 12/13/2024, 9:25. FINDINGS: Image quality: Diagnostic Bones: Minimally displaced 4th metacarpal base fracture. No displaced fracture is seen of the hamate, or other carpal bones. The distal radius and ulna are intact. Soft tissues: Soft tissue swelling is present adjacent to the 4th metacarpal fracture. IMPRESSION: Minimally displaced 4th metacarpal base fracture. No other displaced fracture of the carpal bones identified. If there is high concern for further derangement, consider MRI evaluation. Dictated by: Nj Shultz M.D. on 12/13/2024 at 12:09 Approved by: Nj Shultz M.D. on 12/13/2024 at 12:12
== END 2024-12-13 12:20 | disposition home or self-care (01) ==
PROVIDERS: Emergency Provider Emergency Medicine; Family Provider Family Medicine; PCP Family Medicine
DX: S62.344A Nondisplaced fracture of base of fourth metacarpal bone, right hand, initial encounter for closed fracture (principal); S62.144A Nondisplaced fracture of body of hamate [unciform] bone, right wrist, initial encounter for closed fracture; W18.30XA Fall on same level, unspecified, initial encounter
CPT/HCPCS: 29125; 73110; 73130; 73200; 99283; 99284

== ENCOUNTER → 2025-01-04 09:31 | Outpatient (CLI) | payer OTHER, SELFPAY ==
--- NOTE | 2025-01-04 10:02 | DIAB.FU ---
Addendum entered by Kenia Chicas 01/12/25 08:13: Note that personal CGM self placement and education was completed today along with insulin pump start. Education and placement of Guardian connect CGM. Original Note: Follow-up Diabetes Education Assessment Name: Josh Hidalgo Date: 01/04/25 Time: [id number] Dx: Type II Diabetes Provider: Roni Moreno presents for DM follow-up with insulin pump supplies for start today, accompanied by his Chloe and [employer] life trainer. Brought one vial, but should have three for the month. PCP f/u in January. Settings: TDD: 94u Basal: 47u (been reducing basal lately, will go with 30u basal) Basal rate: 1.25u/hour I:C: 1u per 4.8g ISF: 19mg/dl / 1u Target: 100-150mg/dl Active insulin 3 hours Smart Guard: 01/08/25 2hour active insulin target 120mg/dl Anthropometrics: Ht: 6'2 Wt: 214-216# Physical Activity: no program Self-Monitoring Blood Glucose: Currently using fingersticks. Helped with placement of CGM today. Last TIR: 20% very high 43% high 37% in rnage 0% low or very low av mg/dl GMI: 8.2% std dev: 60 mg/dl 29.2% variance Diabetes Medications: Lispro via insulin pump-- Rx for 100u per day 1.8mg Victoza 10mg Farxiga 1000mg Metformin BID Pertinent Labs: HGA1c: 11.9% 04/2023 12.1% 08/2024 Past Medical History: (Last Reviewed 10/02/24 @ 14:27 by Ernie Tamayo, ) Acquired spondylolysis of lumbar spine Acute maxillary sinusitis Alopecia (Unknown) Anxiety (Unknown) Arthritis (Unknown) lt. knee Bilateral foot pain Chronic pain Dental infection Diabetes (2016) Diabetic neuropathy Fractures (1998) lt. ankle GERD (gastroesophageal reflux disease) (Unknown) Hemorrhoids (Unknown) Hyperlipemia (Unknown) Hypertension (Unknown) Left knee pain Migraines (Unknown) Obstructive sleep apnea (~03/2015) Sinus tachycardia Type 2 diabetes mellitus Intervention: This participant was very receptive. Provided appropriate educational handouts. Discussed the following topics: Insulin pump education and self placement with help of bolusing for meals/snacks and correction Created SMART goals for patient self-care and success. Goals: Call insurance for services- not discussed today Wear insulin pump and CGM- new Bolus for meals/snacks- new Ask pharmacy about vial amounts- new Follow-up: [facility] follow-up in 1 day with life trainer via phone and in 1 week with life trainer and RD in person Kenia Chicas RDN, [place] Certified Diabetes Care and Interior Design Director P: [phone] Thank you for this referral
== END ==
PROVIDERS: Family Provider Family Medicine; PCP Family Medicine; Referring Provider Family Medicine
DX: Z46.81 Encounter for fitting and adjustment of insulin pump (principal); E11.9 Type 2 diabetes mellitus without complications; Z79.4 Long term (current) use of insulin; Z79.84 Long term (current) use of oral hypoglycemic drugs
CPT/HCPCS: 95249; G0108

== ENCOUNTER → 2025-01-11 09:05 | Outpatient (CLI) | payer OTHER, SELFPAY ==
--- NOTE | 2025-01-11 13:40 | DIAB.FU ---
Follow-up Diabetes Education Assessment Name: Josh Hidalgo Date: 01/11/25 Time: 930-10a Dx: Type II Diabetes Provider: Roni Moreno presents for DM follow-up with insulin pump supplies, accompanied by his Chloe and [employer] applications trainer. Brought one vial again. [facility] pharmacy needs an updated rx. RD figured this out today post appt and PCP office sent updated rx. Overall, doing well. not bolusing with meals/snacks since turning on automation. Feels some low symptoms with more in range numbers. Requesting d/c of Victoza r/t not liking injections, his usually helps with this. On much less insulin than when on MDI. PCP f/u in January. Settings: TDD: 94u----> 20.6u Basal rate: 1.25u/hour -----> 1u/hour I:C: 1u per 4.8g -----> 1:6 ISF: 19mg/dl / 1u ---> 30mg/dl per u Smart Guard: 01/08/25 2hour active insulin target 120mg/dl ---> will leave right now but goal to move to 110 and then 100mg/dl after less symptomatic with in range numbers. Will reevaluate I:C once he is bolusing more consistently Anthropometrics: Ht: 6'2 Wt: 227# reported Physical Activity: no program Self-Monitoring Blood Glucose: CGM-- improved time in range and std deviation. TIR: 5% very high 42% high 53% in range 0% low or very low av mg/dl GMI: % std dev: 45 mg/dl 25.7% variance Last TIR: 20% very high 43% high 37% in range 0% low or very low av mg/dl GMI: 8.2% std dev: 60 mg/dl 29.2% variance Diabetes Medications: Lispro via insulin pump-- Rx for 100u per day 1.8mg Victoza 10mg Farxiga 1000mg Metformin BID Pertinent Labs: HGA1c: 11.9% 04/2023 12.1% 08/2024 Past Medical History: (Last Reviewed 10/02/24 @ 14:27 by Ernie Tamayo DO) Acquired spondylolysis of lumbar spine Acute maxillary sinusitis Alopecia (Unknown) Anxiety (Unknown) Arthritis (Unknown) lt. knee Bilateral foot pain Chronic pain Dental infection Diabetes (2016) Diabetic neuropathy Fractures (1998) lt. ankle GERD (gastroesophageal reflux disease) (Unknown) Hemorrhoids (Unknown) Hyperlipemia (Unknown) Hypertension (Unknown) Left knee pain Migraines (Unknown) Obstructive sleep apnea (~03/2015) Sinus tachycardia Type 2 diabetes mellitus Intervention: This participant was very receptive. Provided appropriate educational handouts. Discussed the following topics: bolusing for meals/snacks Support for changing out infusion set Created SMART goals for patient self-care and success. Goals: Call insurance for services- not discussed today Wear insulin pump and CGM- met Bolus for meals/snacks- in progress Ask pharmacy about vial amounts- met Follow-up: [facility] follow-up in 1 week Kenia Chicas RDN, [place] Certified Diabetes Care and Preanalytics Team Lead P: [phone] Thank you for this referral
== END ==
PROVIDERS: Family Provider Family Medicine; PCP Family Medicine; Referring Provider Family Medicine
DX: Z46.81 Encounter for fitting and adjustment of insulin pump (principal); E11.9 Type 2 diabetes mellitus without complications; Z71.3 Dietary counseling and surveillance; Z79.4 Long term (current) use of insulin; Z79.84 Long term (current) use of oral hypoglycemic drugs; Z79.85 Long-term (current) use of injectable non-insulin antidiabetic drugs
CPT/HCPCS: G0108

== ENCOUNTER → 2025-01-18 09:08 | Outpatient (CLI) | payer OTHER, SELFPAY ==
--- NOTE | 2025-01-24 15:46 | DIAB.FU ---
Follow-up Diabetes Education Assessment Name: Josh Hidalgo Date: 01/18/25 Time: 930-10a Dx: Type II Diabetes Josh presents for DM follow-up with insulin pump supplies, accompanied by his Chloe Endorses some lows, however none documented in CGM. Lowest BG is 70mg/dl. States he has not been eating for fear of needing more insulin and having lows. Changed out infusion set today. Offered temp basal for days when his appetite is low, declined at this time. Settings: TDD: 21.2u Basal rate: 1u/hour I:C: 1u per 1:6 ISF: 19mg/dl / 1u ---> Smart Guard: 01/08/25 2hour active insulin target 120mg/dl ---> will leave right now but goal to move to 110 and then 100mg/dl after less symptomatic with in range numbers. Will reevaluate I:C once he is bolusing more consistently Anthropometrics: Ht: 6'2 Wt: 227# reported Physical Activity: no program Self-Monitoring Blood Glucose: CGM-- improved time in range with in goal >70% in range time. TIR: 4% very high 24% high 72% in range 0% low or very low av mg/dl GMI: 7.1% std dev: 42 mg/dl 26.4% variance Last TIR: 5% very high 42% high 53% in range 0% low or very low av mg/dl GMI: % std dev: 45 mg/dl 25.7% variance Diabetes Medications: Lispro via insulin pump-- Rx for 100u per day 1.8mg Victoza 10mg Farxiga 1000mg Metformin BID Pertinent Labs: HGA1c: 11.9% 04/2023 12.1% 08/2024 Past Medical History: (Last Reviewed 10/02/24 @ 14:27 by Ernie Tamayo DO) Acquired spondylolysis of lumbar spine Acute maxillary sinusitis Alopecia (Unknown) Anxiety (Unknown) Arthritis (Unknown) lt. knee Bilateral foot pain Chronic pain Dental infection Diabetes (2016) Diabetic neuropathy Fractures (1998) lt. ankle GERD (gastroesophageal reflux disease) (Unknown) Hemorrhoids (Unknown) Hyperlipemia (Unknown) Hypertension (Unknown) Left knee pain Migraines (Unknown) Obstructive sleep apnea (~03/2015) Sinus tachycardia Type 2 diabetes mellitus Intervention: This participant was very receptive. Provided appropriate educational handouts. Discussed the following topics: Eating frequency Barriers to eating Safety features of pump and importance of bolusing when indicated Created SMART goals for patient self-care and success. Goals: Bolus for meals/snacks- in progress Try to eat 2-3x per day- new Follow-up: [facility] follow-up in 1-2 weeks Kenia Chicas RDN, [place] Certified Diabetes Care and Tower Operator P: [phone] Thank you for this referral
== END ==
LOC: DIET 09:08
PROVIDERS: Family Provider Family Medicine; PCP Family Medicine; Referring Provider Family Medicine
DX: Z46.81 Encounter for fitting and adjustment of insulin pump (principal); E11.9 Type 2 diabetes mellitus without complications; Z71.3 Dietary counseling and surveillance; Z79.4 Long term (current) use of insulin; Z79.84 Long term (current) use of oral hypoglycemic drugs
CPT/HCPCS: G0108

== ENCOUNTER → 2025-01-23 09:14 | Outpatient (CLI) | payer OTHER, SELFPAY ==
[2025-01-23 09:50] LABS: Add Manual Diff / Slide Review NO; Basophils Absolute Auto 100 /uL (0-100); Eosinophils Absolute Auto 400 /uL (0-450); Eosinophils Percent Auto 3.4 % (2-4); Hematocrit 51.5 % (41-53); Hemoglobin 17.5 g/dL (13.5-17.5); Lymphocytes Absolute Auto 4500 /uL (1100-4500); Lymphocytes Percent Auto 37.7 % (25-40); Mean Corpuscular HGB Conc 33.9 % (30-36); Mean Corpuscular Hemoglobin 27.9 PG (26-34); Mean Corpuscular Volume 82.3 fL (80-100); Monocytes Absolute Auto 700 /uL (0-900); Monocytes Percent Auto 6.1 % (3-14); Neutrophils Absolute Auto 6200 /uL (1500-7000); Neutrophils Percent Auto 51.8 % (50-75); Platelet Count 317 X10^3/uL (150-400); Red Blood Cell Count 6.26 X10^6/uL (4.5-5.9); Red Cell Distribution Width 13.7 % (11.6-14.8)
[2025-01-23 10:03] LABS: Alanine Aminotransferase 27 IU/L (<50); Albumin 4.4 g/dL (3.5-5.0); Albumin Globulin Ratio 1.3 (1.0-2.8); Alkaline Phosphatase 85 U/L (38-126); Aspartate Aminotransferase 25 IU/L (17-59); BUN Creatinine Ratio 13.3 (6-22); Bilirubin Total 0.7 mg/dL (0.2-1.3); Blood Urea Nitrogen 8 mg/dL (9-20); Calcium 10.4 mg/dL (8.4-10.2); Carbon Dioxide 24 mmol/L (22-32); Chloride 105 mmol/L (98-107); Cholesterol 276 mg/dL (140-199); Estimated Glomerular Filt Rate > 60 mL/min (>60); Globulin 3.3 g/dL (1.7-4.1); Glucose 201 mg/dL (70-100); HDL Cholesterol 37 mg/dL (40-60); HEMOLYSIS 21 (0-50); LDL Cholesterol Calculated 170 mg/dL (<100); Potassium 3.8 mmol/L (3.4-5.1); Sodium 139 mmol/L (137-145); Total Protein 7.7 g/dL (6.3-8.2); Triglycerides 343 mg/dL (35-150)
[2025-01-23 10:41] LABS: Creatinine Urine Random 130.71 mg/dL
[2025-01-23 10:47] LABS: Microalbumin Urine Random 8.4 mg/dL (0-1.6)
== END ==
LOC: LAB 09:14
PROVIDERS: Family Provider Family Medicine; PCP Family Medicine; Referring Provider Family Medicine; Visit Provider Family Medicine
DX: E11.59 Type 2 diabetes mellitus with other circulatory complications (principal); Z79.4 Long term (current) use of insulin; E78.2 Mixed hyperlipidemia; I10 Essential (primary) hypertension; K21.9 Gastro-esophageal reflux disease without esophagitis
CPT/HCPCS: 36415; 80053; 80061; 82043; 82570; 83036; 85025

== ENCOUNTER → 2025-01-25 09:03 | Outpatient (CLI) | payer OTHER, SELFPAY ==
--- NOTE | 2025-01-25 16:08 | DIAB.FU ---
Follow-up Diabetes Education Assessment Name: Josh Hidalgo Date: 01/25/25 Time: [id number] Dx: Type II Diabetes Josh presents for DM follow-up with insulin pump supplies, accompanied by his Chloe and [employer] production trainer. Recent hgA1c much improved Ordering supplies. Feels comfortable changing infusion and reservoir. Trying to get use to dentures. Still worries about bolusing and lows Has been skipping meals as a result of this fear Starting to feel less low symptoms with in range numbers Treating lows with starburst candy Needs review of carb counting Settings: TDD: 21u Basal rate: 1u/hour I:C: 1u per 1:6 ISF: 30mg/dl / 1u Smart Guard: 01/08/25 2hour active insulin target 120mg/dl ---> will leave right now but goal to move to 110 and then 100mg/dl after less symptomatic with in range numbers. Will reevaluate I:C once he is bolusing more consistently Anthropometrics: Ht: 6'2 Wt: 227# reported Physical Activity: no program Self-Monitoring Blood Glucose: CGM-- improved time in range with in goal >70% in range time. TIR: 4% very high 24% high 72% in range 0% low or very low av mg/dl GMI: 7.1% std dev: 42 mg/dl 26.4% variance Last TIR: 5% very high 42% high 53% in range 0% low or very low av mg/dl GMI: % std dev: 45 mg/dl 25.7% variance Diabetes Medications: Lispro via insulin pump-- Rx for 100u per day 1.8mg Victoza 10mg Farxiga 1000mg Metformin BID Pertinent Labs: HGA1c: 11.9% 04/2023 12.1% 08/2024 8% 01/2025 Past Medical History: (Last Reviewed 10/02/24 @ 14:27 by Ernie Tamayo DO) Acquired spondylolysis of lumbar spine Acute maxillary sinusitis Alopecia (Unknown) Anxiety (Unknown) Arthritis (Unknown) lt. knee Bilateral foot pain Chronic pain Dental infection Diabetes (2016) Diabetic neuropathy Fractures (1998) lt. ankle GERD (gastroesophageal reflux disease) (Unknown) Hemorrhoids (Unknown) Hyperlipemia (Unknown) Hypertension (Unknown) Left knee pain Migraines (Unknown) Obstructive sleep apnea (~03/2015) Sinus tachycardia Type 2 diabetes mellitus Intervention: This participant was very receptive. Provided appropriate educational handouts. Discussed the following topics: Recent blood sugar results and trends Eating frequency Barriers to eating Safety features of pump and importance of bolusing when indicated Bolusing and very basic nutrition Created SMART goals for patient self-care and success. Goals: Bolus for meals/snacks- in progress Try to eat 2-3x per day- new Follow-up: [facility] follow-up in 3-4 weeks will review more nutrition at next visit. Kenia Chicas RDN, JOEES Certified Diabetes Care and Aircraft Powerplant Repairer P: [phone] Thank you for this referral
== END ==
PROVIDERS: Family Provider Family Medicine; PCP Family Medicine; Referring Provider Family Medicine
DX: Z46.81 Encounter for fitting and adjustment of insulin pump (principal); E11.9 Type 2 diabetes mellitus without complications; Z79.4 Long term (current) use of insulin; Z79.84 Long term (current) use of oral hypoglycemic drugs; Z79.85 Long-term (current) use of injectable non-insulin antidiabetic drugs
CPT/HCPCS: G0108

== ENCOUNTER 2025-02-11 11:06 | Emergency (ER) | payer MEDICARE, MEDICAID, SELFPAY ==
[2025-02-11 11:06] VITALS: BP 144/91; PULSE 105; RESP 18; TEMP 36.3; O2SAT 98; BMI 28.2
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
== END 2025-02-11 11:20 | disposition home or self-care (01) ==
LOC: ED 11:28
PROVIDERS: Emergency Provider Emergency Medicine; Family Provider Family Medicine; PCP Family Medicine
DX: Z02.89 Encounter for other administrative examinations (principal); E11.9 Type 2 diabetes mellitus without complications; Z96.41 Presence of insulin pump (external) (internal); Z79.4 Long term (current) use of insulin
CPT/HCPCS: 99281

== ENCOUNTER → 2025-02-22 09:01 | Outpatient (CLI) | payer OTHER, SELFPAY ==
--- NOTE | 2025-03-13 10:17 | DIAB.MNTFU ---
Follow-up Diabetes Medical Nutrition Therapy Assessment Name: Josh Hidalgo Date: 02/22/25 Time: 930-137a Dx: Type II Diabetes Josh presents for DM follow-up with insulin pump supplies. Approved for knee surgery. Today he is tearful in difficulties in his marriage. As a result, we kept this visit short. Has reduced milk intake. Low appetite lately with stress. Living at sister's home at this time away from his family. Trying to eat yogurt and cottage cheese. Eating 1x per day. Improved bolusing. Feet still feeling quite numb despite improved BG. Due for labs in April. Settings: TDD: 21u--- 24.1u Basal rate: 1u/hour I:C: 1u per 1:6 ISF: 30mg/dl / 1u Smart Guard: 01/08/25 2hour active insulin target 120mg/dl --- will move to 110mg/dl next visit Will reevaluate I:C once he is bolusing more consistently Anthropometrics: Ht: 6'2 Wt: 208-210# reported 03/2024 Physical Activity: no program Self-Monitoring Blood Glucose: CGM-- improved time in range with in goal >70% in range time. TIR: 1% very high 22% high 77% in range 0% low or very low av mg/dl GMI: 7.2% std dev: 31 mg/dl 19.2% variance Last TIR: 4% very high 24% high 72% in range 0% low or very low av mg/dl GMI: 7.1% std dev: 42 mg/dl 26.4% variance Diabetes Medications: Lispro via insulin pump-- Rx for 100u per day 1.8mg Victoza 10mg Farxiga 1000mg Metformin BID Pertinent Labs: HGA1c: 11.9% 04/2023 12.1% 08/2024 8% 01/2025 Past Medical History: (Last Reviewed 10/02/24 @ 14:27 by Ernie Tamayo DO) Acquired spondylolysis of lumbar spine Acute maxillary sinusitis Alopecia (Unknown) Anxiety (Unknown) Arthritis (Unknown) lt. knee Bilateral foot pain Chronic pain Dental infection Diabetes (2016) Diabetic neuropathy Fractures (1998) lt. ankle GERD (gastroesophageal reflux disease) (Unknown) Hemorrhoids (Unknown) Hyperlipemia (Unknown) Hypertension (Unknown) Left knee pain Migraines (Unknown) Obstructive sleep apnea (~03/2015) Sinus tachycardia Type 2 diabetes mellitus Nutrition Rx: Carbohydrates: Meal:45g Snack:15-30g Nutrition Diagnosis: - Excessive CHO intake r/t milk consumption and nutrition knowledge deficit aeb diet recall and pt report - improved - Nutrition knowledge deficit r/t limited nutrition/DM education aeb pt report- in progress Intervention: This participant was very receptive. Provided appropriate educational handouts. Discussed the following topics: Recent blood sugar results and trends Eating frequency Eating for surger recovery, protein foods Created SMART goals for patient self-care and success. Goals: Bolus for meals/snacks- improved Try to eat 2-3x per day- in progress Follow-up: [facility] follow-up in 3-4 weeks Kenia Chicas RDN, CAN Certified Diabetes Care and Receiving Worker P: [phone] Thank you for this referral
== END ==
LOC: DIET 09:01
PROVIDERS: Family Provider Family Medicine; PCP Family Medicine
DX: Z46.81 Encounter for fitting and adjustment of insulin pump (principal); E11.9 Type 2 diabetes mellitus without complications; Z71.3 Dietary counseling and surveillance; Z79.84 Long term (current) use of oral hypoglycemic drugs; Z79.4 Long term (current) use of insulin
CPT/HCPCS: 97803

== ENCOUNTER → 2025-05-14 13:24 | Outpatient (CLI) | payer MEDICARE, MEDICAID, SELFPAY ==
[2025-05-14 16:11] LABS: Hemoglobin A1C% w Est Avg Glu 5.9 % (4.0-6.0)
[2025-05-14 16:44] LABS: Alanine Aminotransferase 20 IU/L (<50); Albumin 4.7 g/dL (3.5-5.0); Albumin Globulin Ratio 1.4 (1.0-2.8); Alkaline Phosphatase 63 U/L (38-126); Blood Urea Nitrogen 7 mg/dL (9-20); Calcium 9.7 mg/dL (8.4-10.2); Carbon Dioxide 27 mmol/L (22-32); Chloride 105 mmol/L (98-107); Cholesterol 278 mg/dL (140-199); Estimated Glomerular Filt Rate > 60 mL/min (>60); Globulin 3.3 g/dL (1.7-4.1); Glucose 112 mg/dL (70-99); HDL Cholesterol 36 mg/dL (40-60); HEMOLYSIS < 15 (0-50); Potassium 3.8 mmol/L (3.4-5.1); Sodium 141 mmol/L (137-145); Total Protein 8.0 g/dL (6.3-8.2); Triglycerides 185 mg/dL (35-150)
== END ==
PROVIDERS: Family Provider Family Medicine; PCP Family Medicine; Referring Provider Family Medicine; Visit Provider Family Medicine
DX: E11.9 Type 2 diabetes mellitus without complications (principal); E78.5 Hyperlipidemia, unspecified; I10 Essential (primary) hypertension
CPT/HCPCS: 36415; 80053; 80061; 83036; 84681